=== PATIENT | female | born 1985 | race Caucasian/White ===

== ENCOUNTER 2020-02-29 09:53 | Inpatient (IN) | payer MEDICAID, SELFPAY ==
--- NOTE | 2020-02-29 | CT_ITS ---
EXAMINATION: CT OF THE ABDOMEN AND PELVIS WITHOUT IV CONTRAST CLINICAL INFORMATION: Abdominal pain COMPARISON: Previous CT September 2016 TECHNIQUE: Axial images through the abdomen and pelvis without oral or IV contrast. Sagittal and coronal reconstructions on the technologist workstation were performed. Patient dose 8 3 5 mg/cm. This CT examination was performed using dose optimization techniques as appropriate, variously including the following: *Automated exposure control *Adjustment of mA and/or kV according to patient size (this includes techniques or standardized protocols for targeted exams where dose is matched to indication/reason for exam; i.e. extremities or head) *Use of iterative reconstruction technique FINDINGS: The liver is low in attenuation suggestive of fatty infiltration. Liver is markedly enlarged, right lobe measuring 31 cm in length. There is a 0.8 x 1.3 cm low-attenuation lesion at the junction of the medial segment of the left lobe and the anterior segment of the right lobe of the liver axial image 35 series 3. This is not seen on previous exam. No other focal liver lesion is seen. The gallbladder is unremarkable. There is no biliary duct dilatation. The spleen is slightly enlarged measuring 13 cm in length. Of the pancreas is unremarkable. The adrenal glands are unremarkable. There is a small 2 mm nonobstructing right lower pole renal stone. The kidneys are otherwise unremarkable. There is an IUD in the uterus in satisfactory position. The uterus and ovaries are otherwise unremarkable. The right colon is displaced by the enlarged liver. There may be a fatty infiltration in the wall of the right colon which is a nonspecific finding. Small and large bowel is otherwise unremarkable. The appendix is not identified. There are postsurgical changes from gastric bypass. There is a small umbilical hernia containing fat. There is shotty retroperitoneal lymphadenopathy. No enlarged lymph nodes are seen. There is no ascites. There is degenerative disc disease at L4-L5. IMPRESSION: Very enlarged fatty liver. 8 x 13 mm low-attenuation lesion in the liver not seen on previous exam. Follow-up dedicated liver imaging for further characterization recommended. Slightly enlarged spleen. Postsurgical changes from gastric bypass. Small nonobstructing right lower pole renal stone. IUD in the uterus in satisfactory position.
--- NOTE | 2020-02-29 | XR_ITS ---
EXAMINATION: CHEST X-RAY CLINICAL INFORMATION: Abdominal pain COMPARISON: None TECHNIQUE: AP portable chest FINDINGS: The cardiac and mediastinal contours are normal. The lung volumes are low. There is elevation of the right hemidiaphragm. The lungs are clear. There is no pleural effusion or pneumothorax. There is no evidence of free air. Bony structures are unremarkable. IMPRESSION: Low lung volumes and elevated right hemidiaphragm.
[2020-02-29 10:21] VITALS: BP 120/76; PULSE 125; RESP 20; TEMP 37.3; O2SAT 98; BMI 31.4
[2020-02-29 10:32] VITALS: PULSE 125
[2020-02-29] MEDS: 0.9 % Sodium Chloride 1,000 ML 999 ML IVCONT (10:47)
[2020-02-29] MEDS: ondansetron HCL 4 MG/2 ML VIAL IVPUSH (10:54)
[2020-02-29 10:55] LABS: MANUAL DIFF FLAG NO
[2020-02-29] MEDS: LORazepam 2 MG/ML VIAL 1 MG IVPUSH (10:55)
[2020-02-29 10:56] LABS: Basophils Percent Auto 0.3 % (0-2); Eosinophils Absolute Auto 0.2 X10*3/uL (0.0-0.4); Eosinophils Percent Auto 2.4 % (0-4); Hematocrit 26.3 % (37-47); Hemoglobin 8.9 g/dl (12.0-16.0); Imm Gran Abs Auto 0.07 X10*3/uL (0.00-0.03); Lymphocytes Absolute Auto 0.9 X10*3/uL (1.2-4.9); Lymphocytes Percent Auto 13.5 % (20-40); Mean Corpuscular HGB Conc 33.8 g/dl (31.0-35.0); Mean Corpuscular Hemoglobin 35.6 pg (27.0-33.0); Mean Corpuscular Volume 105.2 fL (80-98); Mean Platelet Volume 11.4 fL (9.4-12.3); Monocytes Absolute Auto 0.5 X10*3/uL (0.1-1.2); Monocytes Percent Auto 7.7 % (2-11); Neutrophils Absolute Auto 5.2 X10*3/uL (2.0-8.3); Neutrophils Percent Auto 75.1 % (45-73); Platelet Count 150 X10*3/uL (160-400); Red Cell Distribution Width 16.9 % (11.0-16.0)
[2020-02-29 11:05] LABS: NRBC Pct Auto 1.4 /100WBC (0.0-0.2)
[2020-02-29 11:15] LABS: Partial Thromboplastin Time 31.3 SEC (24.1-38.0)
[2020-02-29 11:23] LABS: Ethanol < 10 mg/dL
[2020-02-29 11:35] LABS: Alanine Aminotransferase 57 U/L (0-31); Albumin Level 3.3 g/dL (3.5-5.0); Alkaline Phosphatase 306 U/L (39-117); Anion Gap 21 (12-20); Aspartate Amino Transferase 320 U/L (5-31); Bilirubin Direct 11.8 mg/dL (0.0-0.5); Bilirubin Total 15.9 mg/dL (0.0-1.0); Blood Urea Nitrogen 3 mg/dL (9-16); Calcium 8.6 mg/dL (8.4-10.2); Carbon Dioxide 29 mmol/L (22-29); Chloride 86 mmol/L (96-108); Creatinine Clr Calc Pharmacy 187.6; Estimated Glomerular Filt Rate > 60; Glucose Random 98 mg/dL (60-115); Lipase < 4 U/L (8-78); Potassium 3.1 mmol/l (3.3-5.1); Sodium 133 mmol/L (135-145)
[2020-02-29 13:32] VITALS: BP 107/63; PULSE 101; RESP 18; O2SAT 95
[2020-02-29 13:35] LABS: INTERNATIONAL NORM RATIO 1.2 (0.9-1.1); Prothrombin Time 14.5 SEC (10.8-13.0)
[2020-02-29 13:38] LABS: Glucose Urine UA 100 MG/DL (NEG); Urine Blood NEG (NEG); Urine Protein 1+ MG/DL (NEG-TRACE)
[2020-02-29 13:57] LABS: Appearance Urine CLOUDY; Color Urine AMBER
[2020-02-29 14:09] LABS: Amphetamine Screen Urine Not Detected (Not Detect); Barbiturates, Urine Not Detected (Not Detect); Benzodiazepines Screen Urine Not Detected (Not Detect); Cannabinoid Screen Urine Not Detected (Not Detect); Cocaine Screen Urine Not Detected (Not Detect); Opiate Screen Urine Not Detected (Not Detect); Phencyclidine Screen Urine Not Detected (Not Detect)
[2020-02-29 14:26] LABS: UPreg QC Valid YES; Urine Pregnancy NEGATIVE (NEGATIVE)
[2020-02-29 14:39] LABS: Bacteria Urine TRACE /LPF; RBC Urine 0-2 /HPF (0); Squamous Epithelial Cell Urine 2+ /LPF; WBC Urine 0-2 /HPF (0-4)
[2020-02-29 14:47] VITALS: BP 110/67; PULSE 97; RESP 18; TEMP 37.2
--- NOTE | 2020-02-29 15:14 | ED_ITS ---
HPI - Abdominal Pain General Chief Complaint: Abdominal Pain Stated Complaint: ABD PAIN Time Seen by Provider: 02/29/20 10:21 Source: patient and EMS Mode of arrival: ambulatory Limitations: no limitations History of Present Illness HPI narrative: This is a 35-year-old female presenting via EMS from home who reports to me that she has history of seizures and on Keppra as well as neuropathy on gabapentin who is a daily alcohol drinker has been drinking heavily for many years and recently stopped as of 3 days ago. States she will intermittently. Has mild withdrawal symptoms. Today she comes in complaining o f pain in the abdomen and changes in skin color. States she was told by her fiance that she appeared Jaundice more so over the past 3 days. and feels like she has got a kidney infection having pain in the lower abdomen and flank area. MD elicited complaint: abdominal pain Pertinent past history: none Related Data Allergies Allergy/AdvReac Type Severity Reaction Status Date / Time iron dextran complex Allergy Severe ANAPHYLAXIS Verified 02/29/20 10:57 [IRON DEXTRAN COMPLEX] Sulfa (Sulfonamide Allergy Intermediate RASH/LIPS Verified 02/29/20 10:57 Antibiotics) SWELL [SULFA (SULFONAMIDE ANTIBIOTICS)] bactrim Allergy Unknown Rash Uncoded 02/29/20 10:31 iron dextran Allergy Unknown Anaphylaxis Uncoded 02/29/20 10:31 Review of Systems Eyes: Reports no additional eye complaints Reports system reviewed and no additional complaints, except as documented Cardiovascular: Reports no additional cardiovascular complaints Respiratory: Reports no additional respiratory complaints Gastrointestinal: Reports abdominal pain Genitourinary: Reports no additional female genitourinary complaints Musculoskeletal: Reports no additional musculoskeletal complaints Skin/Breast: Reports system reviewed and no additional complaints, except as docu Reports system reviewed and no additional complaints, except as documented and Denies confusion Psychiatric: Reports no additional psychiatric complaints and Denies confusion Physical Exam Vital Signs and I&O and Narrative: Vital Signs and I&O: Vital Signs Temp 98.9 F 02/29/20 14:47 Pulse 97 02/29/20 14:47 Resp 18 02/29/20 14:47 BP 110/67 02/29/20 14:47 Pulse Ox 95 02/29/20 13:32 Intake & Output 02/28/20 02/29/20 02/29/20 18:59 06:59 18:59 Intake Total 1000 / 1000 Balance 1000 / 1000 Weight 90.991 kg Intake: Intake, IV Amoun t 1000 / 1000 0.9 % Sodium C hloride 1,000 ml 1000 / 1000 @ 999 mls/hr I VCONT .Q1H1M ON LICENSE OF [facility] Rx#:[id number] Body Mass Index 31.4 Const: General: no acute distress and alert; No confusion Orientation/consciousness: No confusion HENMT: Head: Yes normal to inspection Eyes: Sclerae: scleral abnormal (jaundice) Pupils: Equal, round and reactive pupils present Neck: Neck: Yes normal visual inspection Chest: Chest palpation & inspection: normal inspection of the chest Resp: Auscultation: clear to auscultation bilaterally Cardio: Heart sounds: S1 normal heart sound present and S2 normal heart sound present GI: Palpation (GI): nontender : General: No no CVA tenderness Back/Spine/Pelvis: Back: No no CVA tenderness Skin: General skin exam: rashes and/or lesions noted and jaundice Neuro: General: No confusion Cranial nerves: Yes Equal, round and reactive pupils present Motor exam (neuro): 5/5 motor strength present throughout Extrem: General: Yes normal to inspection Psych: Appearance: grossly normal Course Course Hospital Course: Labs show over derangement in the setting of extensive alcohol abuse. She is overall nontoxic appearing. Mentating well. She is in fact sitting up texting on her phone. Likely suspected etiology is alcoholic liver cirrhosis/ alcoholic hepatitis. Case discussed with hospitalist for admission /further evaluation. Given Ativan upon arrival given that she was slightly tremorous and tachycardic. Subsequently started on phenobarb for alcohol withdrawal set. Reevaluation(s) Additional Reevaluation(s): CT scan of the abdomen pelvis impression; very large fatty liver. 8 x 13 mm low-attenuation lesion in the liver not seen on previous exam. Follow-up dedicated liver imaging for further characterization recommended. Slightly enlarged spleen. Postsurgical changes from gastric bypass. Nonobstructing right lower pole renal stone. IUD in uterus in satisfactory position. Read by radiologist sutures in [place]. MDM - Abdominal Pain Differential Diagnosis Differential diagnosis: Likely abdominal pain and pancreatitis; Unlikely aortic dissection, acute appendicitis, bowel perforation, calculus of kidney, constipation, diverticulitis, endometriosis, gastroenteritis, gastritis, mesenteric ischemia, ovarian cyst, peptic ulcer disease, renal colic and small bowel obstruction Differential diagnosis narrative:: Liver failure, hepatitis, alcoholic hepatitis Medical Records Attestation: I reviewed the patient's medical records. Lab Data Attestation: I reviewed the patient's lab results. Result diagrams: 02/29/20 10:43 02/29/20 10:44 Labs: Lab Results 02/29/20 02/29/20 02/29/20 Range/Units 10:43 10:44 10:44 WBC 7.0 (4.8-10.8) X10*3/uL RBC 2.50 L (4.20-5.50) X10*6/uL Hgb 8.9 L (12.0-16.0) g/dl Hct 26.3 L (37-47) % MCV 105.2 H (80-98) fL MCH 35.6 H (27.0-33.0) pg MCHC 33.8 (31.0-35.0) g/dl RDW 16.9 H (11.0-16.0) % Plt Count 150 L (160-400) X10*3/uL MPV 11.4 (9.4-12.3) fL Immature Gran % (Auto) 1.0 H (0.0-0.4) % Neut % (Auto) 75.1 H (45-73) % Lymph % (Auto) 13.5 L (20-40) % [place] % (Auto) 7.7 (2-11) % Eos % (Auto) 2.4 (0-4) % Baso % (Auto) 0.3 (0-2) % Neut # (Auto) 5.2 (2.0-8.3) X10*3/uL Lymph # (Auto) 0.9 L (1.2-4.9) X10*3/uL [place] # (Auto) 0.5 (0.1-1.2) X10*3/uL Eos # (Auto) 0.2 (0.0-0.4) X10*3/uL Baso # (Auto) 0.0 (0.0-0.2) X10*3/uL Abs Immat Gran (auto) 0.07 H (0.00-0.03) X10*3/uL Absolute Nucleated RBC 0.100 H (0.0-0.012) X10*3/uL Nucleated RBC % (auto) 1.4 H (0.0-0.2) /100WBC PT 14.5 H (10.8-13.0) SEC INR 1.2 H (0.9-1.1) APTT 31.3 (24.1-38.0) SEC Hold Blue Top SEE NOTE Sodium 133 L (135-145) mmol/L Potassium 3.1 L (3.3-5.1) mmol/l Chloride 86 L (96-108) mmol/L Carbon Dioxide 29 (22-29) mmol/L Anion Gap 21 H (12-20) BUN 3 L (9-16) mg/dL Creatinine (0.5-1.4) mg/dL Estim Creat Clear Calc 187.6 Estimated GFR > 60 Random Glucose 98 (60-115) mg/dL Calcium 8.6 (8.4-10.2) mg/dL Total Bilirubin 15.9 H (0.0-1.0) mg/dL Direct Bilirubin 11.8 H (0.0-0.5) mg/dL AST 320 H (5-31) U/L ALT 57 H (0-31) U/L Alkaline Phosphatase 306 H (39-117) U/L Total Protein 6.0 L (6.5-8.0) g/dL Albumin 3.3 L (3.5-5.0) g/dL Lipase < 4 L (8-78) U/L Urine Color Urine Appearance Urine pH (5.0-8.0) Ur Specific [place] (1.005-1.025) Urine Protein (NEG-TRACE) MG/DL Urine Glucose (UA) (NEG) MG/DL Urine Ketones (NEG) MG/DL Urine Blood (NEG) Urine Nitrite (NEG) Ur Leukocyte Esterase (NEG) Urine RBC (0) /HPF Urine WBC (0-4) /HPF Ur Squamous Epith Cells /LPF Urine Bacteria /LPF Urine Test (NEGATIVE) Urine Opiates Screen (Not Detect) Ur Barbiturates Screen (Not Detect) Ur Phencyclidine Scrn (Not Detect) Ur Amphetamines Screen (Not Detect) U Benzodiazepines Scrn (Not Detect) Urine Cocaine Screen (Not Detect) U Marijuana (THC) Screen (Not Detect) Ethyl Alcohol mg/dL 02/29/20 02/29/20 02/29/20 Range/Units 10:44 12:46 12:46 WBC (4.8-10.8) X10*3/uL RBC (4.20-5.50) X10*6/uL Hgb (12.0-16.0) g/dl Hct (37-47) % MCV (80-98) fL MCH (27.0-33.0) pg MCHC (31.0-35.0) g/dl RDW (11.0-16.0) % Plt Count (160-400) X10*3/uL MPV (9.4-12.3) fL Immature Gran % (Auto) (0.0-0.4) % Neut % (Auto) (45-73) % Lymph % (Auto) (20-40) % [place] % (Auto) (2-11) % Eos % (Auto) (0-4) % Baso % (Auto) (0-2) % Neut # (Auto) (2.0-8.3) X10*3/uL Lymph # (Auto) (1.2-4.9) X10*3/uL [place] # (Auto) (0.1-1.2) X10*3/uL Eos # (Auto) (0.0-0.4) X10*3/uL Baso # (Auto) (0.0-0.2) X10*3/uL Abs Immat Gran (auto) (0.00-0.03) X10*3/uL Absolute Nucleated RBC (0.0-0.012) X10*3/uL Nucleated RBC % (auto) (0.0-0.2) /100WBC PT (10.8-13.0) SEC INR (0.9-1.1) APTT (24.1-38.0) SEC Hold Blue Top Sodium (135-145) mmol/L Potassium (3.3-5.1) mmol/l Chloride (96-108) mmol/L Carbon Dioxide (22-29) mmol/L Anion Gap (12-20) BUN (9-16) mg/dL Creatinine (0.5-1.4) mg/dL Estim Creat Clear Calc Estimated GFR Random Glucose (60-115) mg/dL Calcium (8.4-10.2) mg/dL Total Bilirubin (0.0-1.0) mg/dL Direct Bilirubin (0.0-0.5) mg/dL AST (5-31) U/L ALT (0-31) U/L Alkaline Phosphatase (39-117) U/L Total Protein (6.5-8.0) g/dL Albumin (3.5-5.0) g/dL Lipase (8-78) U/L Urine Color JORGE Urine Appearance CLOUDY Urine pH 7.0 (5.0-8.0) Ur Specific [place] 1.010 (1.005-1.025) Urine Protein 1+ H (NEG-TRACE) MG/DL Urine Glucose (UA) 100 H (NEG) MG/DL Urine Ketones SEE NOTE (NEG) MG/DL Urine Blood NEG (NEG) Urine Nitrite SEE NOTE (NEG) Ur Leukocyte Esterase SEE NOTE (NEG) Urine RBC 0-2 (0) /HPF Urine WBC 0-2 (0-4) /HPF Ur Squamous Epith Cells 2+ /LPF Urine Bacteria TRACE /LPF Urine Test NEGATIVE (NEGATIVE) Urine Opiates Screen Not Detected (Not Detect) Ur Barbiturates Screen Not Detected (Not Detect) Ur Phencyclidine Scrn Not Detected (Not Detect) Ur Amphetamines Screen Not Detected (Not Detect) U Benzodiazepines Scrn Not Detected (Not Detect) Urine Cocaine Screen Not Detected (Not Detect) U Marijuana (THC) Screen Not Detected (Not Detect) Ethyl Alcohol < 10 mg/dL ABG Data Attestation: I personally reviewed and interpreted this ABG as follows: Discharge Plan Discharge Clinical Impression: Acute alcoholic hepatitis, Abdominal pain Patient Disposition: Admitted As Inpatient [facility] Past Medical History Medical History (Updated 02/29/20 @ 15:52 by Herbert Callahan NP) Alcoholic steatohepatitis Superficial thrombophlebitis Surgical History (Updated 02/29/20 @ 10:29 by Richa Sweeney) Gastric bypass status for obesity History of adenoidectomy Hx of tonsillectomy Previous back surgery Social History Social History Alcohol intake: current Alcohol intake frequency: 3 or more drinks per day Alcohol type: hard liquor and other Smoking Status: Current every day smoker Smoked in Last 30 Days: Yes Use of substances other than those prescribed or required for medical reasons: No Advance Directives: No Advance Directives Information Provided: No
--- NOTE | 2020-02-29 15:14 | PM.IMHP ---
History of Present Illness Date of Service: 02/29/20 Chief Complaint: jaundice, abdominal pain 35-year-old female presented with 3 days jaundice and abdominal pain. Patient states that 4 days prior to presentation she was asymptomatic. Then she started noticing yellowing of his skin denies and diffuse abdominal pain associated with decreased appetite. Patient denies any fevers chills chest pain shortness of breath nausea vomiting or diarrhea. Of note patient has heavy alcohol use increased last year. She last drank 2 days prior to presentation. Past medical history: Alcohol dependence with alcoholic fatty liver disease Epilepsy Raynaud's PCOS Iron deficiency new Chronic back pain Right cephalic superficial thrombophlebitis that was provoked status post 1 month of Xarelto Past surgical history: Gastric bypass 2009 Back surgery Tonsillectomy Review of Systems Constitutional: Constitutional: Denies fever(s) and Reports poor appetite Eyes: Eyes: Denies blurry vision ENT: Denies dysphagia, Denies vertigo, Denies neck pain and Denies throat swelling Cardiovascular: Cardiovascular: Denies chest pain and Denies dyspnea Respiratory: Respiratory: Denies dyspnea Gastrointestinal: Gastrointestinal: Denies dysphagia Genitourinary: Genitourinary: Denies flank pain Musculoskeletal: Musculoskeletal: Denies neck pain Integumentary/Breasts: Skin/Breast: Denies changing lesions Neurologic: Denies confusion and Denies vertigo Psychiatric: Psychiatric: Denies confusion Endocrine: Endocrine: Denies change in body appearance Hematologic/Lymphatic: Hematologic/Lymphatic: Denies easy bleeding Allergic/Immunologic: Allergic/Immunologic: Denies throat swelling [facility] Medical History (Updated 02/29/20 @ 15:52 by Herbert Callahan NP) Alcoholic steatohepatitis Superficial thrombophlebitis Pertinent family history: denies cad Surgical History (Updated 02/29/20 @ 10:29 by Richa Sweeney) Gastric bypass status for obesity History of adenoidectomy Hx of tonsillectomy Previous back surgery Social History Alcohol intake: current Alcohol intake frequency: 3 or more drinks per day Alcohol type: hard liquor and other Smoking Status: Current every day smoker Smoked in Last 30 Days: Yes Use of substances other than those prescribed or required for medical reasons: No Advance Directives: No Advance Directives Information Provided: No Meds Allergies Allergy/AdvReac Type Severity Reaction Status Date / Time iron dextran complex Allergy Severe ANAPHYLAXIS Verified 02/29/20 10:57 [IRON DEXTRAN COMPLEX] Sulfa (Sulfonamide Allergy Intermediate RASH/LIPS Verified 02/29/20 10:57 Antibiotics) SWELL [SULFA (SULFONAMIDE ANTIBIOTICS)] bactrim Allergy Unknown Rash Uncoded 02/29/20 10:31 iron dextran Allergy Unknown Anaphylaxis Uncoded 02/29/20 10:31 Home Medications Medication Instructions Recorded Confirmed Type cyanocobalamin (vitamin B-12) 1,000 mcg PO DAILY 02/29/20 02/29/20 History duloxetine 30 mg PO BID 02/29/20 02/29/20 History gabapentin 900 mg PO TID 02/29/20 02/29/20 History hydrochlorothiazide 25 mg PO DAILY 02/29/20 02/29/20 History levetiracetam [Keppra] 1,500 mg PO BID 02/29/20 02/29/20 History multivitamin 1 tab PO DAILY 02/29/20 02/29/20 History pantoprazole [Protonix] 20 mg PO DAILY 02/29/20 02/29/20 History Physical Exam Vital Signs and Narrative: Vital Signs: Last Vital Signs Temp 98.9 F 02/29/20 14:47 Pulse 97 02/29/20 14:47 Resp 18 02/29/20 14:47 BP 110/67 02/29/20 14:47 Pulse Ox 95 02/29/20 13:32 Body Mass Index 31.4 Const: General: no acute distress and alert; No confusion Orientation/consciousness: No confusion HENMT: Head: Yes normal to inspection Eyes: Sclerae: scleral abnormal (jaundice) Neck: Yes normal visual inspection Chest: Chest palpation & inspection: normal inspection of the chest Resp: Auscultation: clear to auscultation bilaterally Cardio: Heart sounds: S1 normal heart sound present and S2 normal heart sound present GI: Palpation (GI): nontender : General: No no CVA tenderness Back/Spine/Pelvis: Back: No no CVA tenderness Skin: General skin exam: rashes and/or lesions noted and jaundice Neuro: General: No confusion Motor exam (neuro): 5/5 motor strength present throughout Extrem: General: Yes normal to inspection Psych: Appearance: grossly normal Results Labs Labs: Laboratory Tests 02/29/20 02/29/20 02/29/20 10:43 10:44 10:44 WBC 7.0 RBC 2.50 L Hgb 8.9 L Hct 26.3 L MCV 105.2 H MCH 35.6 H MCHC 33.8 RDW 16.9 H Plt Count 150 L MPV 11.4 Immature Gran % (Auto) 1.0 H Neut % (Auto) 75.1 H Lymph % (Auto) 13.5 L [place] % (Auto) 7.7 Eos % (Auto) 2.4 Baso % (Auto) 0.3 Neut # (Auto) 5.2 Lymph # (Auto) 0.9 L [place] # (Auto) 0.5 Eos # (Auto) 0.2 Baso # (Auto) 0.0 Abs Immat Gran (auto) 0.07 H Absolute Nucleated RBC 0.100 H Nucleated RBC % (auto) 1.4 H PT 14.5 H INR 1.2 H APTT 31.3 Hold Blue Top SEE NOTE Sodium 133 L Potassium 3.1 L Chloride 86 L Carbon Dioxide 29 Anion Gap 21 H BUN 3 L Creatinine Estim Creat Clear Calc 187.6 Estimated GFR > 60 Random Glucose 98 Calcium 8.6 Total Bilirubin 15.9 H Direct Bilirubin 11.8 H AST 320 H ALT 57 H Alkaline Phosphatase 306 H Total Protein 6.0 L Albumin 3.3 L Lipase < 4 L Urine Color Urine Appearance Urine pH Ur Specific [place] Urine Protein Urine Glucose (UA) Urine Ketones Urine Blood Urine Nitrite Ur Leukocyte Esterase Urine RBC Urine WBC Ur Squamous Epith Cells Urine Bacteria Urine Test Urine Opiates Screen Ur Barbiturates Screen Ur Phencyclidine Scrn Ur Amphetamines Screen U Benzodiazepines Scrn Urine Cocaine Screen U Marijuana (THC) Screen Ethyl Alcohol 02/29/20 02/29/20 02/29/20 10:44 12:46 12:46 WBC RBC Hgb Hct MCV MCH MCHC RDW Plt Count MPV Immature Gran % (Auto) Neut % (Auto) Lymph % (Auto) [place] % (Auto) Eos % (Auto) Baso % (Auto) Neut # (Auto) Lymph # (Auto) [place] # (Auto) Eos # (Auto) Baso # (Auto) Abs Immat Gran (auto) Absolute Nucleated RBC Nucleated RBC % (auto) PT INR APTT Hold Blue Top Sodium Potassium Chloride Carbon Dioxide Anion Gap BUN Creatinine Estim Creat Clear Calc Estimated GFR Random Glucose Calcium Total Bilirubin Direct Bilirubin AST ALT Alkaline Phosphatase Total Protein Albumin Lipase Urine Color JORGE Urine Appearance CLOUDY Urine pH 7.0 Ur Specific [place] 1.010 Urine Protein 1+ H Urine Glucose (UA) 100 H Urine Ketones SEE NOTE Urine Blood NEG Urine Nitrite SEE NOTE Ur Leukocyte Esterase SEE NOTE Urine RBC 0-2 Urine WBC 0-2 Ur Squamous Epith Cells 2+ Urine Bacteria TRACE Urine Test NEGATIVE Urine Opiates Screen Not Detected Ur Barbiturates Screen Not Detected Ur Phencyclidine Scrn Not Detected Ur Amphetamines Screen Not Detected U Benzodiazepines Scrn Not Detected Urine Cocaine Screen Not Detected U Marijuana (THC) Screen Not Detected Ethyl Alcohol < 10 Assessment and Plan (1) Acute alcoholic hepatitis: Status: Acute (2) Alcoholic steatohepatitis: Status: Acute (3) Epilepsy: Status: Acute 35-year-old female presented with jaundice acute alcoholic hepatitis prednisone monitor labs GI follow-up CT rule out other causes such as viral hepatitis, hepatic vein thrombosis alcohol dependence with withdrawal phenobarb protocol epilepsy Keppra and gabapentin
[2020-02-29 17:46] VITALS: BP 103/63; PULSE 97; RESP 18; TEMP 37
--- NOTE | 2020-02-29 18:12 | PC.NURSE ---
Report called to Michelle on M/S. pt resentation, condition, meds, VS and interventions reviewed.
[2020-02-29 18:31] VITALS: BP 107/55; PULSE 99; RESP 18; TEMP 36.7; O2SAT 95
[2020-02-29] MEDS: Enoxaparin Sodium 40 MG/0.4 ML SYRINGE SUBCUT (19:25)
[2020-02-29] MEDS: 0.9 % Sodium Chloride Flush 3 ML SYRINGE 2 ML IVFLUSH (19:27)
--- NOTE | 2020-02-29 21:08 | PM.GICN ---
History of Present Illness Data of Consult Service Date: 02/29/20 Requesting physician: Kurtis Mason Primary Care Provider: Queta Santiago NP HPI Reason for consult: jaundice and abn LFT 35 yr old f with hx of alcohol abuse, gastric bypass, upper arm DVT, failed back syndrome, anemia who I am seeing for assessment of abn LFT and jaundice She admits to drinking vodka daily for last 6 month due to falling out with daughter. Last few days she was noticed to be jaundiced by partner, also she noted upper and lower abdominal discomfort, appetite has been poor. She denies nausea, no diarrhea, or constipation and no melena or rectal bleeding. Urine noted to be darker by patient. taking tylenol intermittently for pain, no nsaids and no herbal meds or nsaid, no augmentin recently or drug use. 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 she denies abdo pain no n/v she has diarrhea, on and off, she has been tylenol and ibuprofen she thinks she has seen blood in urine no blood in stool no rectal bleeding never had egd/colonoscopy grand dad had colon cancer aged 50 labs attached: hgb 14 02/2108 now hgb 10.7 bili 1 ast 202 alt 31 alk phos; 271 b12 294 (on b12 shots) folic acid 4.8 iron sat 10% ferritin 66 u/s 07/2018 with echogenic liver, stone vs sludge in gb pelvic u/s 2016--normal EGD/COlonoscopy--03/2019--erosive esophagitis, grade B, nati en Y--polyps, tics hemorrhoids bx:rectal polyp, adenoma, hyperplastic polyp, focal colitis, moderate active inflammation GEJ LABS: x9lm--ucnjwe, SHAYNE, SLA, SMA--normal, copper in urine low normal vit b12 and folic acid INTERIM: she has no more diarrhea legs are much better, still some burning in feet no abdo pain if overeats can get regurgitation no seizures since on medication appetite is good weight is stable still drinks alcohol, 4 beers twice a week, enjoys it. Review of Systems Constitutional: Constitutional: Reports poor appetite Eyes: Eyes: Reports no additional eye complaints ENT: Denies vertigo Cardiovascular: Cardiovascular: Reports no additional cardiovascular complaints Respiratory: Respiratory: Reports no additional respiratory complaints Gastrointestinal: Gastrointestinal: Reports as per HPI Genitourinary: Genitourinary: Reports no additional female genitourinary complaints Musculoskeletal: Musculoskeletal: Reports abnormal gait and Reports back pain Neurologic: Reports system reviewed and no additional complaints, except as documented, Reports abnormal gait, Denies confusion and Denies vertigo Psychiatric: Psychiatric: Denies confusion and Reports depression Hematologic/Lymphatic: Hematologic/Lymphatic: Reports as per HPI Allergic/Immunologic: Allergic/Immunologic: Reports no additional allergic/immunologic complaints PMFSH Past Medical History Medical History Alcoholic steatohepatitis Superficial thrombophlebitis Family History Pertinent family history: denies cad Surgical History Surgical History Gastric bypass status for obesity History of adenoidectomy Hx of tonsillectomy Previous back surgery Social History Social History Alcohol intake: current Alcohol intake frequency: 3 or more drinks per day Alcohol type: hard liquor and other Smoking Status: Current every day smoker Smoked in Last 30 Days: Yes Use of substances other than those prescribed or required for medical reasons: No Advance Directives: No Advance Directives Information Provided: No Meds Allergies Allergy/AdvReac Type Severity Reaction Status Date / Time iron dextran complex Allergy Severe ANAPHYLAXIS Verified 02/29/20 10:57 [IRON DEXTRAN COMPLEX] Sulfa (Sulfonamide Allergy Intermediate RASH/LIPS Verified 02/29/20 10:57 Antibiotics) SWELL [SULFA (SULFONAMIDE ANTIBIOTICS)] bactrim Allergy Unknown Rash Uncoded 02/29/20 10:31 iron dextran Allergy Unknown Anaphylaxis Uncoded 02/29/20 10:31 Home Medications Medication Instructions Recorded Confirmed Type cyanocobalamin (vitamin B-12) 1,000 mcg PO DAILY 02/29/20 02/29/20 History duloxetine 30 mg PO BID 02/29/20 02/29/20 History gabapentin 900 mg PO TID 02/29/20 02/29/20 History hydrochlorothiazide 25 mg PO DAILY 02/29/20 02/29/20 History levetiracetam [Keppra] 1,500 mg PO BID 02/29/20 02/29/20 History multivitamin 1 tab PO DAILY 02/29/20 02/29/20 History pantoprazole [Protonix] 20 mg PO DAILY 02/29/20 02/29/20 History Physical Exam Vital Signs and I&O and Narrative: Vital Signs and I&O: Vital Signs Temp 98.1 F 02/29/20 18:31 Pulse 99 02/29/20 18:31 Resp 18 02/29/20 18:31 BP 107/55 L 02/29/20 18:31 Pulse Ox 95 02/29/20 18:31 Intake & Output 02/29/20 02/29/20 03/01/20 06:59 18:59 06:59 Intake Total 2010. Balance Weight 200 lb 9.6 oz Intake: Intake, IV Amoun t 0.9 % Sodium C hloride 1,000 ml 1000 / 1000 @ 999 mls/hr I VCONT .Q1H1M COUNTS INCLUDE 234 BEDS AT THE [facility] Rx#:[id number] Folic Acid 1 m g Thiamine HCL 1011.2 / 1011.2 100 mg MVI, Ad ult 10 ml In 0.9 % Sodium Chlor ayah 1,000 ml @ 42 mls/hr IVCONT .Q24H COUNTS INCLUDE 234 BEDS AT THE [facility] Rx#: [id number] Body Mass Index 31.4 Const: General: No confusion Orientation/consciousness: No confusion HENMT: Head: Yes normal to inspection Eyes: Sclerae: scleral abnormal (jaundice) Pupils: Equal, round and reactive pupils present Neck: Neck: Yes normal visual inspection Chest: Chest palpation & inspection: normal inspection of the chest Resp: Auscultation: clear to auscultation bilaterally Cardio: Heart sounds: S1 normal heart sound present and S2 normal heart sound present GI: Palpation (GI): Tenderness to palpation present (GI) in the epigastrum and in the RUQ : General: No no CVA tenderness Back/Spine/Pelvis: Back: No no CVA tenderness Skin: General skin exam: rashes and/or lesions noted and jaundice Neuro: General: No confusion Cranial nerves: Yes Equal, round and reactive pupils present Motor exam (neuro): 5/5 motor strength present throughout Extrem: General: Yes normal to inspection Psych: Appearance: grossly normal Results Labs CBC & Chem 7: 02/29/20 10:43 02/29/20 10:44 Labs: Short CBC 02/29/20 Range/Units 10:43 WBC 7.0 (4.8-10.8) X10*3/uL Hgb 8.9 L (12.0-16.0) g/dl Hct 26.3 L (37-47) % Plt Count 150 L (160-400) X10*3/uL BMP 02/29/20 10:44 Sodium 133 L Potassium 3.1 L Chloride 86 L Carbon Dioxide 29 BUN 3 L Creatinine Calcium 8.6 Liver Function 02/29/20 Range/Units 10:44 Total Bilirubin 15.9 H (0.0-1.0) mg/dL Direct Bilirubin 11.8 H (0.0-0.5) mg/dL AST 320 H (5-31) U/L ALT 57 H (0-31) U/L Alkaline Phosphatase 306 H (39-117) U/L Albumin 3.3 L (3.5-5.0) g/dL Urine 02/29/20 Range/Units 12:46 Urine Color JORGE Urine Appearance CLOUDY Urine pH 7.0 (5.0-8.0) Ur Specific [place] 1.010 (1.005-1.025) Urine Protein 1+ H (NEG-TRACE) MG/DL Urine Glucose (UA) 100 H (NEG) MG/DL Assessment and Plan (1) Acute alcoholic hepatitis: Status: Acute (2) Acute on chronic blood loss anemia: Status: Acute 35 yr old f with acute jaundice suspected 2/2 acute alcoholic hepatitis ddx; budd chiari, infectious hepatitis, toxic, acut wilsons, autoimmune hepatitis, no evidence of sepsis 2/ Acute on chronic anemia, prob 2/2 nutritional def, gastric bypass and malabsorption, watch for zieves syndrome PLAN: 1/ us liver with doppler 2/ ceruloplasmin, SMA< SHAYNE, IGG, SLA, hep serologies incl hep E, tylenol 3/ high protein diet to prevent sarcopenia 1.1 g/kg/day 4/thiamine and vitmains, watch for alcohol withdrawal 5/ hold on steroids for the moment, madey is borderline, if Bili keeps going up then can consider 6/ rehab and counselling, psych input
[2020-02-29] MEDS: levETIRAcetam Oral Soln 500 MG/5 ML 1500 MG PO (21:17)
[2020-02-29] MEDS: DULoxetine HCl 30 MG CAPSULE.DR PO (21:17)
[2020-02-29] MEDS: Gabapentin 300 MG CAPSULE 900 MG PO (21:18)
[2020-02-29] MEDS: PHENobarbitaL sodium 130 MG/ML VIAL 197 MG IM (21:18)
--- NOTE | 2020-02-29 21:37 | PC.NURSE ---
Phenobarb IM injection given at 2100. 197 mg ordered. Pulled out 260 mg from pyxis and the pyxis did not ask me to waste, nor do I have an undocumented waste. I did waste 63 mg to give a total dose of 197 mg, 1.54 ml. Wasted with Aliya Serna RN. Spoke with pharmacy and I was told to write a note regarding the waste. Aliya will also write a note.
--- NOTE | 2020-02-29 21:58 | PC.NURSE ---
Witnessed Akanksha LOPEZ wasting 63 mg of phenobarbital.
[2020-03-01] VITALS (9 sets, daily range): BP systolic 105–140; BP diastolic 59–73; PULSE 74–103; RESP 19–20; TEMP 36.4–37.1; O2SAT 95–99; BMI 31.4
[2020-03-01] MEDS: PHENobarbitaL sodium 130 MG/ML VIAL 148 MG IM ×2 (00:20→03:30)
[2020-03-01] MEDS: 0.9 % Sodium Chloride Flush 3 ML SYRINGE 2 ML IVFLUSH ×2 (00:21→10:18)
--- NOTE | 2020-03-01 00:39 | PC.NURSE ---
PT HAS 148 MG OF IM PHENOBARB ORDERED. TOOK OUT 2 VIALS FOR TOTAL OF 260 MG. WASTED 112 MG OF PHENOBARB WITH DAVIDA INFANTE RN. AMADA DID NOT PROMPT ME TO WASTE, CALLED PHARMACY EARLIER AND WAS TOLD TO WRITE A NOTE TO COVER THE WASTE. DAVIDA WILL WRITE A NOTE ALSO.
--- NOTE | 2020-03-01 00:43 | PC.NURSE ---
PT HAS 148 MG OF IM PHENOBARB ORDERED. Akanksha Keane took OUT 2 VIALS FOR TOTAL OF 260 MG. WASTED 112 MG OF PHENOBARB WITH me. AMADA DID NOT PROMPT ME TO WASTE, CALLED PHARMACY EARLIER AND WAS TOLD TO WRITE A NOTE TO COVER THE WASTE.
[2020-03-01] MEDS: Acetaminophen 325 MG TABLET 650 MG PO ×3 (01:36→21:00)
[2020-03-01] MEDS: Omeprazole 20 MG CAPSULE.DR PO (05:52)
[2020-03-01 06:32] LABS: MANUAL DIFF FLAG NO
[2020-03-01 07:06] LABS: INTERNATIONAL NORM RATIO 1.3 (0.9-1.1); Prothrombin Time 15.1 SEC (10.8-13.0)
[2020-03-01 07:07] LABS: Anion Gap 16 (12-20); Blood Urea Nitrogen 4 mg/dL (9-16); Carbon Dioxide 32 mmol/L (22-29); Chloride 93 mmol/L (96-108); Creatinine Clr Calc Pharmacy 195.8; Estimated Glomerular Filt Rate > 60; Glucose Fasting 69 mg/dL (60-99); Potassium 3.6 mmol/l (3.3-5.1); Sodium 137 mmol/L (135-145)
[2020-03-01 07:09] LABS: Basophils Percent Auto 0.3 % (0-2); Hematocrit 24.7 % (37-47); Hemoglobin 8.1 g/dl (12.0-16.0); Imm Gran Pct Auto 1.6 % (0.0-0.4); Lymphocytes Absolute Auto 1.4 X10*3/uL (1.2-4.9); Lymphocytes Percent Auto 22.3 % (20-40); Mean Corpuscular HGB Conc 32.8 g/dl (31.0-35.0); Mean Corpuscular Hemoglobin 35.4 pg (27.0-33.0); Mean Corpuscular Volume 107.9 fL (80-98); Mean Platelet Volume 12.4 fL (9.4-12.3); Monocytes Absolute Auto 0.4 X10*3/uL (0.1-1.2); Monocytes Percent Auto 6.7 % (2-11); Neutrophils Absolute Auto 4.3 X10*3/uL (2.0-8.3); Neutrophils Percent Auto 69.1 % (45-73); Platelet Count 122 X10*3/uL (160-400); Red Blood Count 2.29 X10*6/uL (4.20-5.50); White Blood Count 6.3 X10*3/uL (4.8-10.8)
[2020-03-01 07:24] LABS: Calcium 8.2 mg/dL (8.4-10.2)
[2020-03-01 07:27] LABS: NRBC Pct Auto 1.1 /100WBC (0.0-0.2)
[2020-03-01 07:36] LABS: Alanine Aminotransferase 46 U/L (0-31); Aspartate Amino Transferase 262 U/L (5-31); Blood Urea Nitrogen 4 mg/dL (9-16); Creatinine Clr Calc Pharmacy 187.6; Estimated Glomerular Filt Rate > 60
[2020-03-01 09:21] LABS: Alkaline Phosphatase 256 U/L (39-117); Bilirubin Direct 11.2 mg/dL (0.0-0.5); Bilirubin Total 14.9 mg/dL (0.0-1.0); Total Protein 5.3 g/dL (6.5-8.0)
[2020-03-01] MEDS: levETIRAcetam Oral Soln 500 MG/5 ML 1500 MG PO ×2 (10:01→20:55)
[2020-03-01] MEDS: Gabapentin 300 MG CAPSULE 900 MG PO ×3 (10:02→20:56)
[2020-03-01] MEDS: PHENobarbitaL 15 MG TABLET 45 MG PO ×2 (10:03→20:56)
[2020-03-01] MEDS: Multivitamin TABLET 1 TAB PO (10:03)
[2020-03-01] MEDS: Cyanocobalamin (Vitamin B-12) 1,000 MCG TABLET 1000 MCG PO (10:18)
[2020-03-01] MEDS: DULoxetine HCl 30 MG CAPSULE.DR PO ×2 (10:18→20:58)
[2020-03-01 11:31] LABS: HBS Num1 14.28 mIU/mL (0-7.99); HBc Num1 0.34 S/CO (0.00-0.79); HBsAGNum1 0.16 S/CO (0.00-0.99); Hepatitis A Antibody IgM 0.17 Index (0-0.79); Hepatitis B Core Antibody Nonreactive (Nonreactive); Hepatitis B Surface Antigen Negative (Negative); ~Hepatitis A Antibody IgM Nonreactive (Nonreactive); ~Hepatitis B Surface Antibody REACTIVE (Nonreactive)
[2020-03-01 11:37] LABS: ~HepC Num1 0.13 S/CO (0.00-0.79); ~Hepatitis C Antibody Nonreactive (Nonreactive)
--- NOTE | 2020-03-01 12:25 | P.PNIM_ITS ---
Subjective Neurologic Neurologic: Denies confusion Psychiatric Psychiatric: Denies confusion Physical Exam Vital Signs and I&O and Narrative: Vital Signs and I&O: Vital Signs Temp 97.7 F 03/01/20 08:00 Pulse 97 03/01/20 08:00 Resp 19 03/01/20 08:00 BP 105/65 03/01/20 08:00 Pulse Ox 95 03/01/20 08:00 Intake & Output 02/29/20 03/01/20 03/01/20 18:59 06:59 18:59 Intake Total 2570. 560 / 257.2 Output Total 500 / 500 Balance 2070. 60 2070. Urine Output (Aver age ml/kg/hr) 0.46 Weight 90.991 kg Intake: Intake, Oral [place] unt 560 / 560 Intake, IV Amoun t 0.9 % Sodium C hloride 1,000 ml 1000 / 1000 @ 999 mls/hr I VCONT .Q1H1M [facility] Rx#:[id number] Folic Acid 1 m g Thiamine HCL 1011.2 / 1011.2 100 mg MVI, Ad ult 10 ml In 0.9 % Sodium Chlor ayah 1,000 ml @ 42 mls/hr IVCONT .Q24H [facility] Rx#: [id number] Output: Output, Urine Am ount 500 / 500 Other: Dinner % Eaten 75% Number of Unmeas ured Voids 2 Urine Bathroom Urine Color Yellow Last Bowel Movem ent 02/29/20 Stool Bathroom Stool Color Brown Stool Consistenc y Watery Body Mass Index 31.4 Const: General: no acute distress and alert; No confusion Orientation/consciousness: No confusion HENMT: Head: Yes normal to inspection Eyes: Sclerae: scleral abnormal (jaundice) Pupils: Equal, round and reactive pupils present Neck: Neck: Yes normal visual inspection Chest: Chest palpation & inspection: normal inspection of the chest Resp: Auscultation: clear to auscultation bilaterally Cardio: Heart sounds: S1 normal heart sound present and S2 normal heart sound present GI: Palpation (GI): Tenderness to palpation present (GI) in the epigastrum and in the RUQ : General: No no CVA tenderness Back/Spine/Pelvis: Back: No no CVA tenderness Skin: General skin exam: rashes and/or lesions noted and jaundice Neuro: General: No confusion Cranial nerves: Yes Equal, round and reactive pupils present Motor exam (neuro): 5/5 motor strength present throughout Extrem: General: Yes normal to inspection Psych: Appearance: grossly normal Objective Data Current Medications Generic Name Dose Route Start Last Admin Trade Name Freq PRN Reason Stop Dose Admin Acetaminophen 650 mg 03/01/20 01:14 03/01/20 10:17 Acetaminophen 325 Mg Tablet PO 650 mg Q6H PRN Administration Pain, Severe (Pain Scale 7-10) Cyanocobalamin 1,000 mcg 03/01/20 09:00 03/01/20 10:18 Cyanocobalamin (Vitamin B-12) 1,000 Mcg Tablet PO 1,000 mcg DAILY PABLO Administration Duloxetine HCl 30 mg 02/29/20 21:00 03/01/20 10:18 Duloxetine Hcl 30 Mg Capsule. PO 30 mg BID PABLO Administration Enoxaparin Sodium 40 mg 02/29/20 15:00 02/29/20 19:25 Enoxaparin Sodium 40 Mg/0.4 Ml Syringe SUBCUT 40 mg Q24H PABLO Administration Gabapentin 900 mg 02/29/20 21:00 03/01/20 10:02 Gabapentin 300 Mg Capsule PO 900 mg TID PABLO Administration Folic Acid 1 mg/ Thiamine HCl 1,011.2 mls @ 42 mls/hr 02/29/20 11:15 03/01/20 11:40 100 mg/ Multivitamins 10 ml/ IVCONT 42 mls/hr Sodium Chloride .Q24H PABLO Administration Levetiracetam 1,500 mg 02/29/20 21:00 03/01/20 10:01 Levetiracetam Oral Soln 500 Mg/5 Ml PO 1,500 mg BID PABLO Administration Medication 1 each 03/01/20 11:45 03/01/20 11:41 No Benzodiazepines MISCELLANE 1 each DAILY PABLO Administration Multivitamins/Vitamin C 1 tab 03/01/20 09:00 03/01/20 10:03 Multivitamin Tablet PO 1 tab DAILY PABLO Administration Omeprazole 20 mg 03/01/20 06:30 03/01/20 05:52 Omeprazole 20 Mg Capsule. PO 20 mg DAILY@0630 [facility] Administration Pharmacy Consult 1 each 02/29/20 15:08 Consult Rx Perform Med Rec MISCELLANE ONCE PRN Consult order Phenobarbital 45 mg 10/02/20 09:00 03/01/20 10:03 Phenobarbital 15 Mg Tablet PO 03/02/20 21:01 45 mg BID [facility] Administration Phenobarbital 30 mg 03/03/20 09:00 Phenobarbital 30 Mg Tablet PO 03/04/20 21:01 BID [facility] Phenobarbital 15 mg 03/05/20 09:00 Phenobarbital 15 Mg Tablet PO 03/06/20 09:01 DAILY [facility] Sodium Chloride 2 ml 02/29/20 16:00 03/01/20 10:18 0.9 % Sodium Chloride Flush 3 Ml Syringe IVFLUSH 2 ml QSHIFT [facility] Administration Labs CBC & Chem 7: 03/01/20 06:12 03/01/20 06:12 Labs: Laboratory Results - last 24 hr 02/29/20 02/29/20 02/29/20 10:44 12:46 12:46 MCV MCH MCHC RDW Plt Count MPV Immature Gran % (Auto) Neut % (Auto) Lymph % (Auto) Kane % (Auto) Eos % (Auto) Baso % (Auto) Neut # (Auto) Lymph # (Auto) [place] # (Auto) Eos # (Auto) Baso # (Auto) Abs Immat Gran (auto) Absolute Nucleated RBC Nucleated RBC % (auto) PT 14.5 H INR 1.2 H Anion Gap Estim Creat Clear Calc Estimated GFR Fasting Glucose Calcium Total Bilirubin Direct Bilirubin AST ALT Alkaline Phosphatase Total Protein Albumin Urine Color JORGE Urine Appearance CLOUDY Urine pH 7.0 Ur Specific [place] 1.010 Urine Protein 1+ H Urine Glucose (UA) 100 H Urine Ketones SEE NOTE Urine Blood NEG Urine Nitrite SEE NOTE Ur Leukocyte Esterase SEE NOTE Urine RBC 0-2 Urine WBC 0-2 Ur Squamous Epith Cells 2+ Urine Bacteria TRACE Urine Test NEGATIVE Urine Opiates Screen Not Detected Ur Barbiturates Screen Not Detected Ur Phencyclidine Scrn Not Detected Ur Amphetamines Screen Not Detected U Benzodiazepines Scrn Not Detected Urine Cocaine Screen Not Detected U Marijuana (THC) Screen Not Detected Hepatitis A IgM Ab Hep Bs Antigen Hep Bs Antibody Hep B Core Total Ab Hepatitis C Ab (EIA) 03/01/20 03/01/20 03/01/20 05:44 06:12 06:12 MCV 107.9 H MCH 35.4 H MCHC 32.8 RDW 17.0 H Plt Count 122 L MPV 12.4 H Immature Gran % (Auto) 1.6 H Neut % (Auto) 69.1 Lymph % (Auto) 22.3 Kane % (Auto) 6.7 Eos % (Auto) 0.0 Baso % (Auto) 0.3 Neut # (Auto) 4.3 Lymph # (Auto) 1.4 [place] # (Auto) 0.4 Eos # (Auto) 0.0 Baso # (Auto) 0.0 Abs Immat Gran (auto) 0.10 H Absolute Nucleated RBC 0.070 H Nucleated RBC % (auto) 1.1 H PT 15.1 H INR 1.3 H Anion Gap Estim Creat Clear Calc 187.6 Estimated GFR > 60 Fasting Glucose Calcium Total Bilirubin Direct Bilirubin AST 262 H ALT 46 H Alkaline Phosphatase Total Protein Albumin Urine Color Urine Appearance Urine pH Ur Specific [place] Urine Protein Urine Glucose (UA) Urine Ketones Urine Blood Urine Nitrite Ur Leukocyte Esterase Urine RBC Urine WBC Ur Squamous Epith Cells Urine Bacteria Urine Test Urine Opiates Screen Ur Barbiturates Screen Ur Phencyclidine Scrn Ur Amphetamines Screen U Benzodiazepines Scrn Urine Cocaine Screen U Marijuana (THC) Screen Hepatitis A IgM Ab Hep Bs Antigen Hep Bs Antibody Hep B Core Total Ab Hepatitis C Ab (EIA) 03/01/20 03/01/20 06:12 06:12 MCV MCH MCHC RDW Plt Count MPV Immature Gran % (Auto) Neut % (Auto) Lymph % (Auto) [place] % (Auto) Eos % (Auto) Baso % (Auto) Neut # (Auto) Lymph # (Auto) [place] # (Auto) Eos # (Auto) Baso # (Auto) Abs Immat Gran (auto) Absolute Nucleated RBC Nucleated RBC % (auto) PT INR Anion Gap 16 Estim Creat Clear Calc 195.8 Estimated GFR > 60 Fasting Glucose 69 Calcium 8.2 L Total Bilirubin 14.9 H Direct Bilirubin 11.2 H AST ALT Alkaline Phosphatase 256 H Total Protein 5.3 L Albumin 3.0 L Urine Color Urine Appearance Urine pH Ur Specific [place] Urine Protein Urine Glucose (UA) Urine Ketones Urine Blood Urine Nitrite Ur Leukocyte Esterase Urine RBC Urine WBC Ur Squamous Epith Cells Urine Bacteria Urine Test Urine Opiates Screen Ur Barbiturates Screen Ur Phencyclidine Scrn Ur Amphetamines Screen U Benzodiazepines Scrn Urine Cocaine Screen U Marijuana (THC) Screen Hepatitis A IgM Ab Nonreactive Hep Bs Antigen Negative Hep Bs Antibody REACTIVE Hep B Core Total Ab Nonreactive Hepatitis C Ab (EIA) Nonreactive Microbiology Microbiology Results: Microbiology 02/29/20 Unknown Urine clean catch - Clean Catch Midstream Urine Culture - Final Assessment and Plan (1) Acute alcoholic hepatitis: Status: Acute (2) Alcoholic steatohepatitis: Status: Acute (3) Epilepsy: Status: Acute Assessment and Plan: 35-year-old female presented with jaundice acute alcoholic hepatitis inr 1.3, will hold off on prednisone monitor labs, slightly improved GI following follow-up us viral serologies negative alcohol dependence with withdrawal phenobarb protocol epilepsy Keppra and gabapentin
[2020-03-01] MEDS: Enoxaparin Sodium 40 MG/0.4 ML SYRINGE SUBCUT (15:09)
[2020-03-01 21:30] LABS: INTERNATIONAL NORM RATIO 1.4 (0.9-1.1); Prothrombin Time 16.3 SEC (10.8-13.0)
[2020-03-02] MEDS: Omeprazole 20 MG CAPSULE.DR PO (05:38)
[2020-03-02 08:08] LABS: Alanine Aminotransferase 43 U/L (0-31); Albumin Level 2.9 g/dL (3.5-5.0); Alkaline Phosphatase 256 U/L (39-117); Aspartate Amino Transferase 254 U/L (5-31); Bilirubin Direct 10.6 mg/dL (0.0-0.5); Bilirubin Total 13.7 mg/dL (0.0-1.0)
[2020-03-02 08:22] VITALS: BP 106/54; PULSE 97; RESP 19; TEMP 36.7; O2SAT 97
[2020-03-02] MEDS: PHENobarbitaL 15 MG TABLET 45 MG PO ×2 (08:54→22:16)
[2020-03-02] MEDS: levETIRAcetam Oral Soln 500 MG/5 ML 1500 MG PO ×2 (08:54→22:06)
[2020-03-02] MEDS: Cyanocobalamin (Vitamin B-12) 1,000 MCG TABLET 1000 MCG PO (08:54)
[2020-03-02] MEDS: DULoxetine HCl 30 MG CAPSULE.DR PO ×2 (08:54→22:08)
[2020-03-02] MEDS: Gabapentin 300 MG CAPSULE 900 MG PO ×3 (08:54→22:07)
[2020-03-02] MEDS: Multivitamin TABLET 1 TAB PO (08:54)
--- NOTE | 2020-03-02 09:42 | P.PNIM_ITS ---
Subjective Subjective Date of Service: 03/02/20 Interval History: Trouble sleeping, abdominal pain, neuropathy Cardiovascular Cardiovascular: Reports no additional cardiovascular complaints Respiratory Respiratory: Reports no additional respiratory complaints Physical Exam Vital Signs and I&O and Narrative: Vital Signs and I&O: Vital Signs Temp 98.1 F 03/02/20 08:22 Pulse 97 03/02/20 08:22 Resp 19 03/02/20 08:22 BP 106/54 L 03/02/20 08:22 Pulse Ox 97 03/02/20 08:22 Intake & Output 03/01/20 03/02/20 03/02/20 18:59 06:59 18:59 Intake Total 600 / 600 Output Total 3 / 3 Balance 600 / 597 -3 / 597 Urine Output (Aver age ml/kg/hr) 0.00 Weight 90.9 kg Intake: Intake, Oral [place] unt 600 / 600 Output: Output, Urine Am ount 3 / 3 Other: Meal Refused No No NPO No No Breakfast % Eate n 100% 100% Lunch % Eaten 75% 100% Dinner % Eaten 100% 100% Number of Incont inent Voids 3 Urine Bathroom Body Mass Index 31.4 Const: General: no acute distress and alert Orientation/consciousness: patient oriented x3 HENMT: Head: Yes normal to inspection Eyes: Sclerae: scleral abnormal (juandice) Pupils: Equal, round and reactive pupils present Neck: Neck: Yes normal visual inspection Chest: Chest palpation & inspection: normal inspection of the chest Resp: Auscultation: clear to auscultation bilaterally Cardio: Heart sounds: S1 normal heart sound present and S2 normal heart sound present GI: Palpation (GI): nontender : General: No no CVA tenderness Back/Spine/Pelvis: Back: No no CVA tenderness Skin: General skin exam: rashes and/or lesions noted and jaundice Neuro: General: patient oriented x3 Cranial nerves: Yes Equal, round and reactive pupils present Motor exam (neuro): 5/5 motor strength present throughout Extrem: General: Yes normal to inspection Psych: Appearance: grossly normal Affect: normal affect Objective Data Current Medications Generic Name Dose Route Start Last Admin Trade Name Freq PRN Reason Stop Dose Admin Acetaminophen 650 mg 03/01/20 01:14 03/01/20 21:00 Acetaminophen 325 Mg Tablet PO 650 mg Q6H PRN Administration Pain, Severe (Pain Scale 7-10) Cyanocobalamin 1,000 mcg 03/01/20 09:00 03/02/20 08:54 Cyanocobalamin (Vitamin B-12) 1,000 Mcg Tablet PO 1,000 mcg DAILY PABLO Administration Duloxetine HCl 30 mg 02/29/20 21:00 03/02/20 08:54 Duloxetine Hcl 30 Mg Capsule. PO 30 mg BID PABLO Administration Enoxaparin Sodium 40 mg 02/29/20 15:00 03/01/20 15:09 Enoxaparin Sodium 40 Mg/0.4 Ml Syringe SUBCUT 40 mg Q24H PABLO Administration Gabapentin 900 mg 02/29/20 21:00 03/02/20 08:54 Gabapentin 300 Mg Capsule PO 900 mg TID PABLO Administration Folic Acid 1 mg/ Thiamine HCl 1,011.2 mls @ 42 mls/hr 02/29/20 11:15 03/01/20 11:40 100 mg/ Multivitamins 10 ml/ IVCONT 42 mls/hr Sodium Chloride .Q24H PABLO Administration Levetiracetam 1,500 mg 02/29/20 21:00 03/02/20 08:54 Levetiracetam Oral Soln 500 Mg/5 Ml PO 1,500 mg BID [facility] Administration Multivitamins/Vitamin C 1 tab 03/01/20 09:00 03/02/20 08:54 Multivitamin Tablet PO 1 tab DAILY [facility] Administration Omeprazole 20 mg 03/01/20 06:30 03/02/20 05:38 Omeprazole 20 Mg Capsule. PO 20 mg DAILY@0630 [facility] Administration Pharmacy Consult 1 each 02/29/20 15:08 Consult Rx Perform Med Rec MISCELLANE ONCE PRN Consult order Phenobarbital 45 mg 03/01/20 09:00 03/02/20 08:54 Phenobarbital 15 Mg Tablet PO 03/02/20 21:01 45 mg BID [facility] Administration Phenobarbital 30 mg 03/03/20 09:00 Phenobarbital 30 Mg Tablet PO 03/04/20 21:01 BID [facility] Phenobarbital 15 mg 03/05/20 09:00 Phenobarbital 15 Mg Tablet PO 03/06/20 09:01 DAILY [facility] Sodium Chloride 2 ml 02/29/20 16:00 03/02/20 07:38 0.9 % Sodium Chloride Flush 3 Ml Syringe IVFLUSH Not Given QSHIFT [facility] Labs CBC & Chem 7: 03/01/20 06:12 03/01/20 06:12 Labs: Laboratory Results - last 24 hr 02/29/20 03/01/20 03/01/20 10:43 06:12 21:13 MCV 105.2 H MCH 35.6 H MCHC 33.8 RDW 16.9 H Plt Count 150 L MPV 11.4 Immature Gran % (Auto) 1.0 H Neut % (Auto) 75.1 H Lymph % (Auto) 13.5 L [place] % (Auto) 7.7 Eos % (Auto) 2.4 Baso % (Auto) 0.3 Neut # (Auto) 5.2 Lymph # (Auto) 0.9 L [place] # (Auto) 0.5 Eos # (Auto) 0.2 Baso # (Auto) 0.0 Abs Immat Gran (auto) 0.07 H Absolute Nucleated RBC 0.100 H Nucleated RBC % (auto) 1.4 H Smear Path Review SEE NOTE PT 16.3 H INR 1.4 H Total Bilirubin Direct Bilirubin AST ALT Alkaline Phosphatase Total Protein Albumin Hepatitis A IgM Ab Nonreactive Hep Bs Antigen Negative Hep Bs Antibody REACTIVE Hep B Core Total Ab Nonreactive Hepatitis C Ab (EIA) Nonreactive 03/02/20 06:48 MCV MCH MCHC RDW Plt Count MPV Immature Gran % (Auto) Neut % (Auto) Lymph % (Auto) [place] % (Auto) Eos % (Auto) Baso % (Auto) Neut # (Auto) Lymph # (Auto) [place] # (Auto) Eos # (Auto) Baso # (Auto) Abs Immat Gran (auto) Absolute Nucleated RBC Nucleated RBC % (auto) Smear Path Review PT INR Total Bilirubin 13.7 H Direct Bilirubin 10.6 H AST 254 H ALT 43 H Alkaline Phosphatase 256 H Total Protein 5.0 L Albumin 2.9 L Hepatitis A IgM Ab Hep Bs Antigen Hep Bs Antibody Hep B Core Total Ab Hepatitis C Ab (EIA) Microbiology Microbiology Results: Microbiology 02/29/20 Unknown Urine clean catch - Clean Catch Midstream Urine Culture - Final Assessment and Plan (1) Acute alcoholic hepatitis: Status: Acute (2) Alcoholic steatohepatitis: Status: Acute (3) Epilepsy: Status: Acute Assessment and Plan: 35-year-old female presented with jaundice acute alcoholic hepatitis DF ok, will hold off on prednisone monitor labs, slightly improved GI following viral serologies negative alcohol dependence with withdrawal phenobarb protocol epilepsy Keppra and gabapentin
[2020-03-02] MEDS: Lactulose 20 GM/30 ML SOLUTION PO (10:22)
[2020-03-02] MEDS: Enoxaparin Sodium 40 MG/0.4 ML SYRINGE SUBCUT (14:41)
[2020-03-02 16:00] VITALS: BP 109/60; PULSE 95; TEMP 36.2; O2SAT 99
[2020-03-02] MEDS: Acetaminophen 325 MG TABLET 650 MG PO (18:50)
[2020-03-02 23:08] VITALS: BP 106/56; PULSE 94; RESP 19; TEMP 36.6; O2SAT 98
[2020-03-03] MEDS: Omeprazole 20 MG CAPSULE.DR PO (05:50)
[2020-03-03 07:39] LABS: MANUAL DIFF FLAG NO
[2020-03-03 07:44] LABS: Basophils Percent Auto 0.3 % (0-2); Hematocrit 23.8 % (37-47); Hemoglobin 7.8 g/dl (12.0-16.0); Imm Gran Abs Auto 0.11 X10*3/uL (0.00-0.03); Imm Gran Pct Auto 1.8 % (0.0-0.4); Lymphocytes Absolute Auto 1.2 X10*3/uL (1.2-4.9); Lymphocytes Percent Auto 19.5 % (20-40); Mean Corpuscular HGB Conc 32.8 g/dl (31.0-35.0); Mean Corpuscular Hemoglobin 35.3 pg (27.0-33.0); Mean Corpuscular Volume 107.7 fL (80-98); Mean Platelet Volume 11.4 fL (9.4-12.3); Monocytes Absolute Auto 0.5 X10*3/uL (0.1-1.2); Monocytes Percent Auto 7.6 % (2-11); Neutrophils Absolute Auto 4.2 X10*3/uL (2.0-8.3); Neutrophils Percent Auto 70.8 % (45-73); Platelet Count 159 X10*3/uL (160-400); Red Blood Count 2.21 X10*6/uL (4.20-5.50); Red Cell Distribution Width 18.5 % (11.0-16.0)
[2020-03-03 07:58] LABS: INTERNATIONAL NORM RATIO 1.4 (0.9-1.1); Prothrombin Time 16.5 SEC (10.8-13.0)
[2020-03-03 08:00] VITALS: BP 106/58; PULSE 93; RESP 18; TEMP 36.6; O2SAT 96
[2020-03-03 08:13] LABS: Alanine Aminotransferase 39 U/L (0-31); Albumin Level 2.7 g/dL (3.5-5.0); Alkaline Phosphatase 247 U/L (39-117); Aspartate Amino Transferase 214 U/L (5-31); Bilirubin Direct 10.3 mg/dL (0.0-0.5); Bilirubin Total 12.9 mg/dL (0.0-1.0); Total Protein 4.7 g/dL (6.5-8.0)
[2020-03-03] MEDS: Gabapentin 300 MG CAPSULE 900 MG PO (08:42)
[2020-03-03] MEDS: PHENobarbitaL 30 MG TABLET PO (08:43)
[2020-03-03] MEDS: Multivitamin TABLET 1 TAB PO (08:43)
[2020-03-03] MEDS: DULoxetine HCl 30 MG CAPSULE.DR PO (08:43)
[2020-03-03] MEDS: levETIRAcetam Oral Soln 500 MG/5 ML 1500 MG PO (08:43)
[2020-03-03] MEDS: Cyanocobalamin (Vitamin B-12) 1,000 MCG TABLET 1000 MCG PO (08:43)
--- NOTE | 2020-03-03 09:44 | PM.DS ---
DS: Providers Provider Date of admission: 02/29/20 14:47 Primary care physician: Queta Santiago NP Consults: 02/29/20 14:22 Consult to Gastroenterology Routine Consulting Provider: Crispin Pritchett Reason for consultation: hepatitis Has provider been notified: Yes DS: Diagnosis Discharge Diagnosis (1) Acute alcoholic hepatitis: Status: Acute (2) Alcoholic steatohepatitis: Status: Acute (3) Epilepsy: Status: Acute (4) Alcohol dependence with withdrawal: Status: Acute DS: Summary Hospital Course Hospital Course: patient was admitted for acute alcoholic hepatitis complicated by alcohol dependence with withdrawal. She was given phenobarbital and withdrawal symptoms improved. She was not given steroids as her discriminant function was under 32. her bilirubin and liver enzymes improved. Her abdominal discomfort improved. She will be discharged home and follow-up with GI as outpatient. Time Spent with Patient Time attestation: Total time spent providing and/or coordinating discharge services: Physical Exam Vital Signs and I&O and Narrative: Vital Signs and I&O: Vital Signs Temp 97.8 F 03/03/20 08:00 Pulse 93 03/03/20 08:00 Resp 18 03/03/20 08:00 BP 106/58 L 03/03/20 08:00 Pulse Ox 96 03/03/20 08:00 Intake & Output 03/02/20 03/03/20 03/03/20 18:59 06:59 18:59 Intake Total 600 / 1000 400 / 1000 Balance 600 / 1000 400 / 1000 Intake: Intake, Oral Sarah unt 600 / 1000 400 / 1000 Other: Number of Unmeas ured Voids 3 Number of Bowel Movements 1 Urine Bathroom Last Bowel Movem ent 03/02/20 03/02/20 Stool Bathroom Bathroom Body Mass Index 31.4 Eyes: Other: Scleral icterus Resp: Auscultation: clear to auscultation bilaterally GI: Palpation (GI): nontender DS: Data Data Completed and Pending Labs on day of discharge: Labs from last 24 hours 03/03/20 03/03/20 03/03/20 07:21 07:21 07:21 WBC 6.0 RBC 2.21 L Hgb 7.8 L Hct 23.8 L MCV 107.7 H MCH 35.3 H MCHC 32.8 RDW 18.5 H Plt Count 159 L D MPV 11.4 Immature Gran % (Auto) 1.8 H Neut % (Auto) 70.8 Lymph % (Auto) 19.5 L [place] % (Auto) 7.6 Eos % (Auto) 0.0 Baso % (Auto) 0.3 Neut # (Auto) 4.2 Lymph # (Auto) 1.2 [place] # (Auto) 0.5 Eos # (Auto) 0.0 Baso # (Auto) 0.0 Abs Immat Gran (auto) 0.11 H Absolute Nucleated RBC 0.000 Nucleated RBC % (auto) 0.0 PT 16.5 H INR 1.4 H Total Bilirubin 12.9 H Direct Bilirubin 10.3 H AST 214 H ALT 39 H Alkaline Phosphatase 247 H Total Protein 4.7 L Albumin 2.7 L Discharge Plan Discharge Patient Disposition: Home, Self-Care Referrals: home no services [Other] Crispin Pritchett MD [Physician] - ( alcoholic hepatitis) Queta Santiago NP [Primary Care Provider] - Discharge Medications: Continued multivitamin Tablet 1 tab PO DAILY RF: 0 cyanocobalamin (vitamin B-12) 1,000 mcg Tablet 1,000 mcg PO DAILY RF: 0 pantoprazole [Protonix] 20 mg Tablet,Delayed Release (Dr/Ec) 20 mg PO DAILY RF: 0 hydrochlorothiazide 25 mg Tablet 25 mg PO DAILY RF: 0 levetiracetam [Keppra] 100 mg/mL Solution 1,500 mg PO BID RF: 0 duloxetine 30 mg Capsule,Delayed Release(Dr/Ec) 30 mg PO BID RF: 0 gabapentin 300 mg Tablet 900 mg PO TID RF: 0 Discharge Orders: Discharge Order (Routine); Ordered 03/03/20 Ordered By: Kurtis Mason Activity on Discharge: As tolerated Visit Report Forms: Patient Portal Discharge page Care Plan Goals: manage alcoholic hepatitis Health Concerns: alcoholic hepatitis Plan of Treatment: avoid alcohol, follow with Gastroenterology
--- NOTE | 2020-03-03 10:00 | MHC.CM.PN ---
PT TO BE DISCHARGED HOME TODAY WITH NO SERVICES PT TO ARRANGE TRANSPORT
[2020-03-04 18:26] LABS: Anti Nuclear Antibody Screen NEGATIVE (NEGATIVE)
== END 2020-03-03 12:00 | disposition home or self-care (01) | DRG 280 ==
LOC: HO.ED 15:52 → HO.IMC 15:58 → HO.S3 16:20
PROVIDERS: Nurse Practitioner Primary Care; Admitting Provider Internal Medicine; Emergency Provider Emergency Medicine; PCP Nurse Practitioner Family; Visit Provider Internal Medicine
DX: K70.10 Alcoholic hepatitis without ascites (principal); F10.239 Alcohol dependence with withdrawal, unspecified; G40.909 Epilepsy, unspecified, not intractable, without status epilepticus; F17.210 Nicotine dependence, cigarettes, uncomplicated; Z71.6 Tobacco abuse counseling; Z97.5 Presence of (intrauterine) contraceptive device; Z88.2 Allergy status to sulfonamides; Z98.84 Bariatric surgery status; Z79.891 Long term (current) use of opiate analgesic; Z79.899 Other long term (current) drug therapy
CPT/HCPCS: 36415; 71045; 74176; 80048; 80053; 80076; 80307; 80320; 81001; 81025; 82040; 82247; 82248; 82565; 83690; 84075; 84155; 84450; 84460; 84520; 85025; 85060; 85610; 85730; 86038; 86039; 86704; 86706; 86709; 86803; 87086; 87340; 96361; 96365; 96375; 99284; 99285; J1650; J2060; J2560; J3411

== ENCOUNTER 2020-03-08 04:55 | Emergency (ER) | payer MEDICAID, SELFPAY ==
[2020-03-08 05:01] VITALS: BP 102/67; PULSE 110; RESP 16; TEMP 36.8; O2SAT 93
[2020-03-08 05:10] VITALS: BP 96/58; PULSE 109; RESP 18; TEMP 36.8; O2SAT 98; BMI 33.5
[2020-03-08 05:42] LABS: Baso%MD 0.2 %; Hematocrit 30.5 % (37-47); Hemoglobin 9.9 g/dl (12.0-16.0); IG%MD 0.8 %; Lymph%MD 14.9 %; Mean Corpuscular HGB Conc 32.5 g/dl (31.0-35.0); Mean Corpuscular Hemoglobin 35.1 pg (27.0-33.0); Mean Corpuscular Volume 108.2 fL (80-98); Mean Platelet Volume 11.4 fL (9.4-12.3); Mono%MD 4.9 %; Neut%MD 79.2 %; Platelet Count 238 X10*3/uL (160-400); Red Blood Count 2.82 X10*6/uL (4.20-5.50); Red Cell Distribution Width 16.5 % (11.0-16.0); White Blood Count 8.4 X10*3/uL (4.8-10.8)
[2020-03-08 06:12] LABS: Anion Gap 14 (12-20); Blood Urea Nitrogen 5 mg/dL (9-16); Calcium 7.9 mg/dL (8.4-10.2); Carbon Dioxide 32 mmol/L (22-29); Chloride 90 mmol/L (96-108); Creatinine Clr Calc Pharmacy 186.1; Estimated Glomerular Filt Rate > 60; Glucose Random 81 mg/dL (60-115); Potassium 3.1 mmol/l (3.3-5.1); Sodium 133 mmol/L (135-145)
[2020-03-08 06:15] LABS: Band Neutrophils Percent 20 % (3-5); Lymphocytes Absolute Manual 1.8 X10*3/uL (0.6-4.8); Lymphocytes Percent Manual 21 % (20-40); Monocytes Absolute Manual 0.8 X10*3/uL (0.0-1.2); Monocytes Percent Manual 10 % (2-11); Neutrophils Absolute Manual 5.8 X10*3/uL (2.2-7.9); Neutrophils Percent Manual 49 % (45-73)
[2020-03-08 06:17] LABS: Macrocytosis 1+; RBC Morphology NOTED
[2020-03-08 06:18] LABS: Platelet Estimate NORMAL (NORMAL); Platelet Morphology Comment NORMAL; Polychromasia 1+; Target Cells 1+
[2020-03-08 06:22] LABS: INTERNATIONAL NORM RATIO 1.4 (0.9-1.1); Prothrombin Time 16.2 SEC (10.8-13.0)
--- NOTE | 2020-03-08 06:24 | PC.NURSE ---
critical lactic acid 2.3. reported md
[2020-03-08 06:25] LABS: Lactic Acid 2.3 mmol/L (0.5-2.0)
--- NOTE | 2020-03-08 06:27 | PC.NURSE ---
pharmacy contacted for k+, they will bring med up when available.
[2020-03-08] MEDS: 0.9 % Sodium Chloride 1,000 ML 999 ML IVCONT (06:31)
[2020-03-08 06:51] LABS: Alanine Aminotransferase 36 U/L (0-31); Albumin Level 2.9 g/dL (3.5-5.0); Alkaline Phosphatase 301 U/L (39-117); Aspartate Amino Transferase 200 U/L (5-31); Bilirubin Direct 12.6 mg/dL (0.0-0.5); Bilirubin Total 17.1 mg/dL (0.0-1.0); Magnesium 1.9 mg/dL (1.6-2.6); Total Protein 5.5 g/dL (6.5-8.0)
--- NOTE | 2020-03-08 07:09 | ECG_ITS ---
Test Reason : ABNORMAL LABS Blood Pressure : / mmHG Vent. Rate : 107 BPM Atrial Rate : 107 BPM P-R Int : 144 ms QRS Dur : 080 ms QT Int : 358 ms P-R-T Axes : 039 016 018 degrees QTc Int : 477 ms Sinus tachycardia T wave abnormality, consider inferior ischemia ST depression, consider subendocardial injury Anterolateral leads Abnormal ECG When compared with ECG of 17-JUN-2018 01:56, T wave inversion now evident in Inferior leads ST depression in Anterolateral leads is new Referred By: Khalif Haley Electronically Signed By:RITA WILKES MD
--- NOTE | 2020-03-08 07:09 | ED_ITS ---
HPI - Recheck/Abnormal Lab/Rx General Chief Complaint: Recheck/Abnormal Lab/Rx Stated Complaint: abnormal labs Time Seen by Provider: 03/08/20 06:17 Source: patient Mode of arrival: ambulatory Limitations: no limitations History of Present Illness HPI narrative: patient alcoholic cirrhosis and just discharged home 4 days ago after she was admitted for alcoholic cirrhosis patient had the labs drawn yesterday which showed potassium of 2.6 otherwise patient feeling fine still bloated feels weak patient denies use of alcohol in last 10 days patient denies any confusion or asterixis no nausea no vomiting having 3 meals a day plan to see blood bank order control clerk next week Related Data Home Medications Medication Instructions Recorded Confirmed cyanocobalamin (vitamin B-12) 1,000 mcg PO DAILY 02/29/20 02/29/20 duloxetine 30 mg PO BID 02/29/20 02/29/20 gabapentin 900 mg PO TID 02/29/20 02/29/20 hydrochlorothiazide 25 mg PO DAILY 02/29/20 02/29/20 levetiracetam [Keppra] 1,500 mg PO BID 02/29/20 02/29/20 multivitamin 1 tab PO DAILY 02/29/20 02/29/20 pantoprazole [Protonix] 20 mg PO DAILY 02/29/20 02/29/20 Previous Rx's Medication Instructions Recorded lactulose 20 g PO DAILY #1200 ml 03/08/20 potassium chloride [Klor-Con 10] 10 meq PO DAILY #20 tab 03/08/20 Allergies Allergy/AdvReac Type Severity Reaction Status Date / Time iron dextran complex Allergy Severe ANAPHYLAXIS Verified 02/29/20 10:57 [IRON DEXTRAN COMPLEX] Sulfa (Sulfonamide Allergy Intermediate RASH/LIPS Verified 02/29/20 10:57 Antibiotics) SWELL [SULFA (SULFONAMIDE ANTIBIOTICS)] bactrim Allergy Unknown Rash Uncoded 02/29/20 10:31 iron dextran Allergy Unknown Anaphylaxis Uncoded 02/29/20 10:31 Review of Systems Constitutional: Constitutional: Reports fatigue and Reports weakness Eyes: Comments: yellow discoloration ENT: Reports system reviewed and no additional complaints, except as documented and Denies disequilibrium Cardiovascular: Cardiovascular: Reports no additional cardiovascular complaints Respiratory: Respiratory: Reports no additional respiratory complaints Gastrointestinal: Gastrointestinal: Reports bloating Genitourinary: Genitourinary: Reports no additional female genitourinary complaints Musculoskeletal: Musculoskeletal: Denies abnormal gait and Denies tingling Neurologic: Denies Neuro-related abnormal movements, Denies abnormal gait, Denies focal weakness, Denies memory loss, Denies Sensory deficit (Neuro), Denies tingling, Denies paresthesias, Denies disequilibrium and Reports weakness Psychiatric: Psychiatric: Reports no additional psychiatric complaints and Denies memory loss Endocrine: Endocrine: Reports fatigue PMFSH Past Medical History Medical History Alcoholic steatohepatitis Superficial thrombophlebitis Surgical History Gastric bypass status for obesity History of adenoidectomy Hx of tonsillectomy Previous back surgery Social History Social History Alcohol intake: former Smoking Status: Current every day smoker Use of substances other than those prescribed or required for medical reasons: No Advance Directives: No Advance Directives Information Provided: No service: No Current occupational status: unemployed Physical Exam Vital Signs and I&O and Narrative: Vital Signs and I&O: Vital Signs Temp 97.6 F 03/08/20 11:59 Pulse 100 03/08/20 11:59 Resp 18 03/08/20 11:59 BP 110/68 03/08/20 11:59 Pulse Ox 98 03/08/20 11:59 Intake & Output 03/07/20 03/08/20 03/08/20 18:59 06:59 18:59 Intake Total 1200 / 1200 Balance 1200 / 1200 Weight 97.069 kg Intake: Intake, IV Amoun t 1200 / 1200 Potassium Chlo ride/H20 10 meq 200 / 200 In 100 ml @ 10 0 mls/hr IV Q1H PABLO Rx#:[id number] 0.9 % Sodium C hloride 1,000 ml 1000 / 1000 @ 999 mls/hr I VCONT .Q1H1M PABLO Rx#:[id number] Body Mass Index 33.5 Appearance: Alert. Oriented X3. No acute distress. Eyes: Pupils equal, round and reactive to light. deep icterus ENT: Pharynx normal. Neck: Normal inspection. Neck supple. CVS: Normal heart rate and rhythm. Pulses normal. Respiratory: No respiratory distress. Breath sounds normal. Abdomen: Soft and nontender. no ascites Skin: Skin warm and dry. icteric. Normal skin turgor. Extremities: No lower extremity edema. No lower extremity edema. Neuro: Oriented X 3. No motor deficit. No sensory deficit. no asterixis Neuro: Sensory Exam: No Sensory deficit (Neuro) Course Course Course Narrative: patient elevated ammonia level with worsening of hepatic failure secondary to alcohol like cirrhosis with low potassium level without any EKG changes. Patient received IV potassium in the ER. Patient ammonia level slightly elevated 68 was given lactulose. At this time patient has no confusion patient has a plan to see blood bank order control clerk will discharge her home on lactulose and potassium tablets MDM - Recheck/Abnormal Lab/Rx Lab Data Result diagrams: 03/08/20 05:34 03/08/20 05:34 Labs: Lab Results 03/08/20 03/08/20 03/08/20 Range/Units 05:34 05:34 05:34 WBC 8.4 (4.8-10.8) X10*3/uL RBC 2.82 L D (4.20-5.50) X10*6/uL Hgb 9.9 L D (12.0-16.0) g/dl Hct 30.5 L D (37-47) % MCV 108.2 H (80-98) fL MCH 35.1 H (27.0-33.0) pg MCHC 32.5 (31.0-35.0) g/dl RDW 16.5 H (11.0-16.0) % Plt Count 238 D (160-400) X10*3/uL MPV 11.4 (9.4-12.3) fL Absolute Nucleated RBC 0.000 (0.0-0.012) X10*3/uL Nucleated RBC % (auto) 0.0 (0.0-0.2) /100WBC Neutrophils % (Manual) 49 (45-73) % Band Neutrophils % 20 H (3-5) % Lymphocytes % (Manual) 21 (20-40) % Monocytes % (Manual) 10 (2-11) % Abs Neuts (Manual) 5.8 (2.2-7.9) X10*3/uL Lymphocytes # (Manual) 1.8 (0.6-4.8) X10*3/uL Monocytes # (Manual) 0.8 (0.0-1.2) X10*3/uL Platelet Estimate NORMAL (NORMAL) Plt Morphology Comment NORMAL RBC Morphology NOTED Polychromasia 1+ Macrocytosis 1+ Target Cells 1+ PT 16.2 H (10.8-13.0) SEC INR 1.4 H (0.9-1.1) APTT (24.1-38.0) SEC Hold Blue Top SEE NOTE Sodium 133 L (135-145) mmol/L Potassium 3.1 L (3.3-5.1) mmol/l Chloride 90 L (96-108) mmol/L Carbon Dioxide 32 H (22-29) mmol/L Anion Gap 14 (12-20) BUN 5 L (9-16) mg/dL Creatinine 0.50 (0.5-1.4) mg/dL Estim Creat Clear Calc 186.1 Estimated GFR > 60 Random Glucose 81 (60-115) mg/dL Lactic Acid (0.5-2.0) mmol/L Lactic Acid Fup @ 2Hr (0.5-2.0) mmol/L Calcium 7.9 L (8.4-10.2) mg/dL Magnesium 1.9 (1.6-2.6) mg/dL Total Bilirubin 17.1 H (0.0-1.0) mg/dL Direct Bilirubin 12.6 H (0.0-0.5) mg/dL AST 200 H (5-31) U/L ALT 36 H (0-31) U/L Alkaline Phosphatase 301 H D (39-117) U/L Ammonia (13-55) umol/L Total Protein 5.5 L (6.5-8.0) g/dL Albumin 2.9 L (3.5-5.0) g/dL Urine Color Urine Appearance Urine pH (5.0-8.0) Ur Specific [place] (1.005-1.025) Urine Protein (NEG-TRACE) MG/DL Urine Glucose (UA) (NEG) MG/DL Urine Ketones (NEG) MG/DL Urine Blood (NEG) Urine Nitrite (NEG) Ur Leukocyte Esterase (NEG) Urine Test (NEGATIVE) 03/08/20 03/08/20 03/08/20 Range/Units 05:34 08:33 08:41 WBC (4.8-10.8) X10*3/uL RBC (4.20-5.50) X10*6/uL Hgb (12.0-16.0) g/dl Hct (37-47) % MCV (80-98) fL MCH (27.0-33.0) pg MCHC (31.0-35.0) g/dl RDW (11.0-16.0) % Plt Count (160-400) X10*3/uL MPV (9.4-12.3) fL Absolute Nucleated RBC (0.0-0.012) X10*3/uL Nucleated RBC % (auto) (0.0-0.2) /100WBC Neutrophils % (Manual) (45-73) % Band Neutrophils % (3-5) % Lymphocytes % (Manual) (20-40) % Monocytes % (Manual) (2-11) % Abs Neuts (Manual) (2.2-7.9) X10*3/uL Lymphocytes # (Manual) (0.6-4.8) X10*3/uL Monocytes # (Manual) (0.0-1.2) X10*3/uL Platelet Estimate (NORMAL) Plt Morphology Comment RBC Morphology Polychromasia Macrocytosis Target Cells PT (10.8-13.0) SEC INR (0.9-1.1) APTT (24.1-38.0) SEC Hold Blue Top Sodium (135-145) mmol/L Potassium (3.3-5.1) mmol/l Chloride (96-108) mmol/L Carbon Dioxide (22-29) mmol/L Anion Gap (12-20) BUN (9-16) mg/dL Creatinine (0.5-1.4) mg/dL Estim Creat Clear Calc Estimated GFR Random Glucose (60-115) mg/dL Lactic Acid 2.3 H* (0.5-2.0) mmol/L Lactic Acid Fup @ 2Hr 2.4 H* (0.5-2.0) mmol/L Calcium (8.4-10.2) mg/dL Magnesium (1.6-2.6) mg/dL Total Bilirubin (0.0-1.0) mg/dL Direct Bilirubin (0.0-0.5) mg/dL AST (5-31) U/L ALT (0-31) U/L Alkaline Phosphatase (39-117) U/L Ammonia (13-55) umol/L Total Protein (6.5-8.0) g/dL Albumin (3.5-5.0) g/dL Urine Color ORANGE Urine Appearance HAZY Urine pH 6.5 (5.0-8.0) Ur Specific [place] 1.015 (1.005-1.025) Urine Protein NEG (NEG-TRACE) MG/DL Urine Glucose (UA) NEG (NEG) MG/DL Urine Ketones NEG (NEG) MG/DL Urine Blood NEG (NEG) Urine Nitrite NEG (NEG) Ur Leukocyte Esterase NEG (NEG) Urine Test NEGATIVE (NEGATIVE) 03/08/20 03/08/20 Range/Units 08:41 08:41 WBC (4.8-10.8) X10*3/uL RBC (4.20-5.50) X10*6/uL Hgb (12.0-16.0) g/dl Hct (37-47) % MCV (80-98) fL MCH (27.0-33.0) pg MCHC (31.0-35.0) g/dl RDW (11.0-16.0) % Plt Count (160-400) X10*3/uL MPV (9.4-12.3) fL Absolute Nucleated RBC (0.0-0.012) X10*3/uL Nucleated RBC % (auto) (0.0-0.2) /100WBC Neutrophils % (Manual) (45-73) % Band Neutrophils % (3-5) % Lymphocytes % (Manual) (20-40) % Monocytes % (Manual) (2-11) % Abs Neuts (Manual) (2.2-7.9) X10*3/uL Lymphocytes # (Manual) (0.6-4.8) X10*3/uL Monocytes # (Manual) (0.0-1.2) X10*3/uL Platelet Estimate (NORMAL) Plt Morphology Comment RBC Morphology Polychromasia Macrocytosis Target Cells PT 16.9 H (10.8-13.0) SEC INR 1.4 H (0.9-1.1) APTT 34.6 (24.1-38.0) SEC Hold Blue Top Sodium (135-145) mmol/L Potassium (3.3-5.1) mmol/l Chloride (96-108) mmol/L Carbon Dioxide (22-29) mmol/L Anion Gap (12-20) BUN (9-16) mg/dL Creatinine (0.5-1.4) mg/dL Estim Creat Clear Calc Estimated GFR Random Glucose (60-115) mg/dL Lactic Acid (0.5-2.0) mmol/L Lactic Acid Fup @ 2Hr (0.5-2.0) mmol/L Calcium (8.4-10.2) mg/dL Magnesium (1.6-2.6) mg/dL Total Bilirubin (0.0-1.0) mg/dL Direct Bilirubin (0.0-0.5) mg/dL AST (5-31) U/L ALT (0-31) U/L Alkaline Phosphatase (39-117) U/L Ammonia 68 H (13-55) umol/L Total Protein (6.5-8.0) g/dL Albumin (3.5-5.0) g/dL Urine Color Urine Appearance Urine pH (5.0-8.0) Ur Specific [place] (1.005-1.025) Urine Protein (NEG-TRACE) MG/DL Urine Glucose (UA) (NEG) MG/DL Urine Ketones (NEG) MG/DL Urine Blood (NEG) Urine Nitrite (NEG) Ur Leukocyte Esterase (NEG) Urine Test (NEGATIVE) Discharge Plan Discharge Clinical Impression: Chronic hypokalemia Alcoholic cirrhosis Qualifiers: Ascites presence: without ascites Qualified Code(s): K70.30 - Alcoholic cirrhosis of liver without ascites Patient Disposition: Home, Self-Care Instructions: Cirrhosis (ED), Hypokalemia (ED) Additional Instructions: do not drink alcohol and follow-up with blood bank order control clerk as planned. Have extra banana daily. Take potassium tablets also daily. Take lactulose to have diarrhea. Report to the ER if change in mental status /confusion Prescriptions: New lactulose 20 gram/30 mL solution 20 g PO DAILY Qty: 1200 RF: 0 potassium chloride [Klor-Con 10] 10 mEq tablet extended release 10 meq PO DAILY Qty: 20 RF: 0 No Action multivitamin Tablet 1 tab PO DAILY RF: 0 cyanocobalamin (vitamin B-12) 1,000 mcg Tablet 1,000 mcg PO DAILY RF: 0 pantoprazole [Protonix] 20 mg Tablet,Delayed Release (Dr/Ec) 20 mg PO DAILY RF: 0 hydrochlorothiazide 25 mg Tablet 25 mg PO DAILY RF: 0 levetiracetam [Keppra] 100 mg/mL Solution 1,500 mg PO BID RF: 0 duloxetine 30 mg Capsule,Delayed Release(Dr/Ec) 30 mg PO BID RF: 0 gabapentin 300 mg Tablet 900 mg PO TID RF: 0 Referrals: Crispin Pritchett MD [Physician] - 2 days
[2020-03-08] MEDS: Potassium Chloride/H20 10 MEQ/100 ML PIGGYBACK 100 MEQ IV ×2 (07:17→08:47)
[2020-03-08 07:25] VITALS: BP 121/74; PULSE 103; RESP 20; TEMP 36.9; O2SAT 98
[2020-03-08 07:39] LABS: Reflex Lactate? Lactic Acid Added
[2020-03-08 08:37] VITALS: BP 124/68; PULSE 106; RESP 18; TEMP 36.6; O2SAT 98
[2020-03-08 08:53] LABS: Glucose Urine UA NEG (NEG); Leukocyte Esterase Urine NEG (NEG); Nitrite Urine NEG (NEG); PH 6.5 (5.0-8.0); Specific Gravity - Urine 1.015 (1.005-1.025); Urine Blood NEG (NEG); Urine Ketones NEG (NEG); Urine Protein NEG (NEG-TRACE)
--- NOTE | 2020-03-08 08:54 | PC.NURSE ---
PT WAITING ON LAB RESULTS AND DISPO, POTENTIAL FOR ADMISSION.
[2020-03-08 08:55] LABS: INTERNATIONAL NORM RATIO 1.4 (0.9-1.1); Prothrombin Time 16.9 SEC (10.8-13.0)
[2020-03-08 08:58] LABS: Partial Thromboplastin Time 34.6 SEC (24.1-38.0)
[2020-03-08 08:58] LABS: Appearance Urine HAZY; Color Urine ORANGE; UACC Culture Trigger NO
[2020-03-08 08:59] LABS: UPreg QC Valid YES; Urine Pregnancy NEGATIVE (NEGATIVE)
[2020-03-08 09:02] LABS: Ammonia 68 umol/L (13-55)
[2020-03-08 09:11] LABS: ~Lactic Acid-LAB USE ONLY 2.4 mmol/L (0.5-2.0)
[2020-03-08 10:00] VITALS: BP 107/61; PULSE 104; RESP 18; TEMP 36.9; O2SAT 96
[2020-03-08] MEDS: Lactulose 20 GM/30 ML SOLUTION 30 GM PO (10:40)
[2020-03-08 10:45] LABS: Reflex Lactate? 2 Y
--- NOTE | 2020-03-08 11:24 | PC.NURSE ---
plan for dc provider will update pt
[2020-03-08 11:59] VITALS: BP 110/68; PULSE 100; RESP 18; TEMP 36.4; O2SAT 98
== END 2020-03-08 12:32 | disposition home or self-care (01) ==
PROVIDERS: Student in an Organized Health Care Education/Training Program; Emergency Provider Internal Medicine; PCP Nurse Practitioner Family
DX: R79.89 Other specified abnormal findings of blood chemistry (principal)
CPT/HCPCS: 36415; 80048; 80076; 81003; 81025; 82140; 83605; 83735; 85007; 85027; 85610; 85730; 87040; 93005; 96361; 96365; 99284; 99285

== ENCOUNTER 2020-03-11 12:46 | Emergency (ER) | payer MEDICAID, SELFPAY ==
[2020-03-11 13:31] VITALS: BP 114/61; PULSE 105; RESP 16; TEMP 36.8; O2SAT 100; BMI 33.5
[2020-03-11 13:39] VITALS: BP 114/61; PULSE 105; RESP 16; TEMP 36.8; O2SAT 100
--- NOTE | 2020-03-11 13:43 | MR_ITS ---
EXAMINATION: MR ABDOMEN WITHOUT CONTRAST (MRCP) CLINICAL INFORMATION: History abdominal pain. Assess for cholecystitis, common duct stone. COMPARISON: CT abdomen and pelvis noncontrast 02/29/2020. TECHNIQUE: MR abdomen is performed without gadolinium contrast. Imaging is performed in the coronal and axial plane. Additional MRCP sequence also included. FINDINGS: LUNG BASES: The visualized lung bases are unremarkable. LIVER, GALLBLADDER, AND BILIARY TREE: The liver is enlarged similar to recent CT measuring 30 cm in length. There is diffuse decreased signal on out of phase imaging consistent with hepatic steatosis. Again, there is small circumscribed benign-appearing lesion anterior right lobe measuring approximately 8 x 13 mm, high signal on in phase imaging and decreased signal on out of phase imaging without T2 signal, possibly hemorrhagic cyst or fatty lesion. The remainder the liver is homogeneous. The liver surface is smooth. The gallbladder is distended normally at 3.9 cm in caliber. There are fine dependent filling defects in the lumen suggesting fine gravel-like calculi. There is no gallbladder wall thickening or surrounding inflammatory changes. There is no intrahepatic or extrahepatic biliary ductal dilatation. Common duct measures approximately 6 mm in caliber. There is no visible intraluminal ductal filling defect. No extrinsic compression or displacement or stricture. PANCREAS: Unremarkable. SPLEEN: Spleen is enlarged measuring 15.5 cm in sagittal dimension similar to recent CT. Spleen is homogeneous. ADRENAL GLANDS: Unremarkable. KIDNEYS AND URETERS: The kidneys appear symmetric and normal in signal. No hydronephrosis. GASTROINTESTINAL TRACT: Prior gastric bypass. No obstruction. There is mild ascites around the liver and spleen. No focal fluid collection. ABDOMINAL WALL: No significant hernia is appreciated. LYMPH NODES: No lymphadenopathy. VASCULAR: Unremarkable. OSSEOUS STRUCTURES: Marrow signal normal. IMPRESSION: 1. Suspect fine gravel-like calculi in the dependent gallbladder. No gallbladder wall thickening, biliary ductal dilatation, or visible choledocholithiasis. 2. Hepatosplenomegaly similar to recent CT. Diffuse hepatic steatosis. Mild ascites.
--- NOTE | 2020-03-11 14:02 | ED_ITS ---
HPI - Abdominal Pain General Chief Complaint: Abdominal Pain Stated Complaint: abd pain Time Seen by Provider: 03/11/20 13:25 History of Present Illness HPI narrative: Patient presents to ED for further evaluation of abdominal pain. Patient was seen today at [facility] and was told to come to the ED due to ultrasound reading of possible cholecystitis with common bile duct dilat ation. Patient states her skin has been very jaundiced the past 2 weeks. Patient was recently admitted to the hospital for alcoholic hepatitis with jaundice. Patient states last drink was 4 days ago. Patient denies any dysuria, hematuria, flank pain, fever, chills, rectal bleeding, vomiting blood. Related Data Home Medications Medication Instructions Recorded Confirmed cyanocobalamin (vitamin B-12) 1,000 mcg PO DAILY 02/29/20 02/29/20 duloxetine 30 mg PO BID 02/29/20 02/29/20 gabapentin 900 mg PO TID 02/29/20 02/29/20 hydrochlorothiazide 25 mg PO DAILY 02/29/20 02/29/20 levetiracetam [Keppra] 1,500 mg PO BID 02/29/20 02/29/20 multivitamin 1 tab PO DAILY 02/29/20 02/29/20 pantoprazole [Protonix] 20 mg PO DAILY 02/29/20 02/29/20 Previous Rx's Medication Instructions Recorded lactulose 20 g PO DAILY #1200 ml 03/08/20 potassium chloride [Klor-Con 10] 10 meq PO DAILY #20 tab 03/08/20 tramadol 50 mg PO Q6H PRN #12 tab 03/11/20 Allergies Allergy/AdvReac Type Severity Reaction Status Date / Time iron dextran complex Allergy Severe ANAPHYLAXIS Verified 02/29/20 10:57 [IRON DEXTRAN COMPLEX] Sulfa (Sulfonamide Allergy Intermediate RASH/LIPS Verified 02/29/20 10:57 Antibiotics) SWELL [SULFA (SULFONAMIDE ANTIBIOTICS)] bactrim Allergy Unknown Rash Uncoded 02/29/20 10:31 iron dextran Allergy Unknown Anaphylaxis Uncoded 02/29/20 10:31 Review of Systems Review of Systems skin is jaundice Yes all other systems are reviewed and are negative Constitutional: Reports no additional constitutional complaints Comments: jaundice Reports system reviewed and no additional complaints, except as documented Cardiovascular: Reports as per HPI and Reports no additional cardiovascular complaints Respiratory: Reports as per HPI, Reports no additional respiratory complaints and Reports no additional respiratory complaints Gastrointestinal: Reports abdominal pain, Denies belching, Denies melena, Denies bloating, Denies hematochezia, Denies change in bowel habits, Denies tenesmus, Denies change in stool character, Denies coffee ground emesis, Denies consti pation, Denies GI cramping, Denies early satiety and Denies dyspepsia Genitourinary: Denies dysmenorrhea, Denies dysuria, Denies pelvic pain, Denies urinary incontinence, Denies urinary hesitancy, Denies urinary urgency and Denies vaginal discharge Musculoskeletal: Reports no additional musculoskeletal complaints Reports system reviewed and no additional complaints, except as documented Psychiatric: Reports no additional psychiatric complaints Physical Exam Vital Signs: Vital Signs: Vital Signs Temp Pulse Resp BP Pulse Ox 03/11/20 16:00 98.2 F 100 16 110/62 98 03/11/20 13:39 98.3 F 105 H 16 114/61 100 03/11/20 13:31 98.3 F 105 H 16 114/61 100 Body Mass Index 33.5 Const: General: cooperative, healthy appearing and comfortable Orientation/consciousness: oriented to person, oriented to place, oriented to time and patient oriented x3 HENMT: Head: Yes normal to inspection Eyes: General: appearance normal, both eyes and all related structures Neck: Neck: Yes normal visual inspection, Yes full ROM and Yes no lympha denopathy Chest: Chest palpation & inspection: normal inspection of the chest Resp: Effort & Inspection: normal respiratory effort, able to speak in complete sentences, normal respiratory pattern, no audible wheezes, no cough, no grunting, not labored, no nasal flaring and no paradoxical thoraco-abdom movements Cardio: Jugular venous distension: no JVD Rate: regular rate Heart sounds: S1 normal heart sound present and S2 normal heart sound present GI: Inspection: No abdominal wall ecchymosis, No Abdominal wall edema, No distended and No Kehr's sign positive Palpation (GI): not firm, Tenderness to palpation present (GI) (mild tenderness) in the epigastrum and in the RUQ; Andujar's sign negative, no guarding and not rigid : General: No CVA tenderness and Yes no CVA tenderness Back/Spine/Pelvis: Back: no CVA tenderness, No CVA tenderness and back tenderness Skin: Other: Positive for generalized jaundice. Neuro: General: oriented to person, oriented to place, oriented to time, patient oriented x3 and gait normal Extrem: General: Yes normal to inspection and Yes full ROM Psych: Appearance: grossly normal and well kempt Course Course Course Narrative: Spoke with Dr. Hairston of surgery [facility] recommends patient to have MRCP and repeat labs. Reevaluation(s) Reevaluation #1: patient labs are at baseline. Patient presently not in any distress. Awaiting results of MRCP. Time: 15:52 Reevaluation #2: MRCP came back negative for cholecystitis. Spoke with surgeon Dr. Angel who agrees patient could be discharged and follow-up as outpatient. Patient informed of this and told she has also follow-up with surgeon and fashion designer due to her history of alcohol hepatitis. Patient is safe discharge. Time: 17:16 MDM - Abdominal Pain MDM Narrative Medical decision making narrative: gallstones, but negative for cholecystitis. Labs are at baseline. Patient will have follow-up with surgery and her fashion designer. Lab Data Result diagrams: 03/11/20 14:13 03/11/20 14:13 Labs: Lab Results 03/11/20 03/11/20 03/11/20 Range/Units 14:13 14:13 14:13 WBC 10.2 (4.8-10.8) X10*3/uL RBC 2.76 L (4.20-5.50) X10*6/uL Hgb 9.4 L (12.0-16.0) g/dl Hct 29.4 L (37-47) % MCV 106.5 H (80-98) fL MCH 34.1 H (27.0-33.0) pg MCHC 32.0 (31.0-35.0) g/dl RDW 15.9 (11.0-16.0) % Plt Count 250 (160-400) X10*3/uL MPV 11.0 (9.4-12.3) fL Immature Gran % (Auto) 0.8 H (0.0-0.4) % Neut % (Auto) 79.6 H (45-73) % Lymph % (Auto) 13.3 L (20-40) % [place] % (Auto) 6.0 (2-11) % Eos % (Auto) 0.0 (0-4) % Baso % (Auto) 0.3 (0-2) % Lymph # (Auto) 1.4 (1.2-4.9) X10*3/uL [place] # (Auto) 0.6 (0.1-1.2) X10*3/uL Eos # (Auto) 0.0 (0.0-0.4) X10*3/uL Baso # (Auto) 0.0 (0.0-0.2) X10*3/uL Abs Immat Gran (auto) 0.08 H (0.00-0.03) X10*3/uL Absolute Neuts (auto) 8.1 (2.0-8.3) X10*3/uL Absolute Nucleated RBC 0.000 (0.0-0.012) X10*3/uL Nucleated RBC % (auto) 0.0 (0.0-0.2) /100WBC PT 17.8 H (10.8-13.0) SEC INR 1.5 H (0.9-1.1) APTT 35.0 (24.1-38.0) SEC Sodium 132 L (135-145) mmol/L Potassium 3.3 (3.3-5.1) mmol/l Chloride 93 L (96-108) mmol/L Carbon Dioxide 31 H (22-29) mmol/L Anion Gap 11 L (12-20) BUN 3 L (9-16) mg/dL Creatinine 0.42 L (0.5-1.4) mg/dL Estim Creat Clear Calc 221.5 Estimated GFR > 60 Random Glucose 81 (60-115) mg/dL Calcium 7.7 L (8.4-10.2) mg/dL Total Bilirubin 16.8 H (0.0-1.0) mg/dL Direct Bilirubin 13.0 H (0.0-0.5) mg/dL AST 204 H (5-31) U/L ALT 34 H (0-31) U/L Alkaline Phosphatase 260 H (39-117) U/L Total Protein 4.9 L (6.5-8.0) g/dL Albumin 2.6 L (3.5-5.0) g/dL Lipase 6 L (8-78) U/L Beta HCG, Quant < 2 mIU/mL Blood Type Antibody Screen 03/11/20 Range/Units 14:22 WBC (4.8-10.8) X10*3/uL RBC (4.20-5.50) X10*6/uL Hgb (12.0-16.0) g/dl Hct (37-47) % MCV (80-98) fL MCH (27.0-33.0) pg MCHC (31.0-35.0) g/dl RDW (11.0-16.0) % Plt Count (160-400) X10*3/uL MPV (9.4-12.3) fL Immature Gran % (Auto) (0.0-0.4) % Neut % (Auto) (45-73) % Lymph % (Auto) (20-40) % [place] % (Auto) (2-11) % Eos % (Auto) (0-4) % Baso % (Auto) (0-2) % Lymph # (Auto) (1.2-4.9) X10*3/uL [place] # (Auto) (0.1-1.2) X10*3/uL Eos # (Auto) (0.0-0.4) X10*3/uL Baso # (Auto) (0.0-0.2) X10*3/uL Abs Immat Gran (auto) (0.00-0.03) X10*3/uL Absolute Neuts (auto) (2.0-8.3) X10*3/uL Absolute Nucleated RBC (0.0-0.012) X10*3/uL Nucleated RBC % (auto) (0.0-0.2) /100WBC PT (10.8-13.0) SEC INR (0.9-1.1) APTT (24.1-38.0) SEC Sodium (135-145) mmol/L Potassium (3.3-5.1) mmol/l Chloride (96-108) mmol/L Carbon Dioxide (22-29) mmol/L Anion Gap (12-20) BUN (9-16) mg/dL Creatinine (0.5-1.4) mg/dL Estim Creat Clear Calc Estimated GFR Random Glucose (60-115) mg/dL Calcium (8.4-10.2) mg/dL Total Bilirubin (0.0-1.0) mg/dL Direct Bilirubin (0.0-0.5) mg/dL AST (5-31) U/L ALT (0-31) U/L Alkaline Phosphatase (39-117) U/L Total Protein (6.5-8.0) g/dL Albumin (3.5-5.0) g/dL Lipase (8-78) U/L Beta HCG, Quant mIU/mL Blood Type B Positive Antibody Screen NEGATIVE Discharge Plan Discharge Clinical Impression: Gallstones Patient Disposition: Home, Self-Care Instructions: Biliary Colic (ED), Gallstones (ED) Prescriptions: New tramadol 50 mg tablet 50 mg PO Q6H PRN (Reason: pain) Qty: 12 RF: 0 No Action multivitamin Tablet 1 tab PO DAILY RF: 0 cyanocobalamin (vitamin B-12) 1,000 mcg Tablet 1,000 mcg PO DAILY RF: 0 pantoprazole [Protonix] 20 mg Tablet,Delayed Release (Dr/Ec) 20 mg PO DAILY RF: 0 hydrochlorothiazide 25 mg Tablet 25 mg PO DAILY RF: 0 levetiracetam [Keppra] 100 mg/mL Solution 1,500 mg PO BID RF: 0 duloxetine 30 mg Capsule,Delayed Release(Dr/Ec) 30 mg PO BID RF: 0 gabapentin 300 mg Tablet 900 mg PO TID RF: 0 lactulose 20 gram/30 mL solution 20 g PO DAILY Qty: 1200 RF: 0 potassium chloride [Klor-Con 10] 10 mEq tablet extended release 10 meq PO DAILY Qty: 20 RF: 0 Referrals: Crispin Pritchett MD [Physician] - 2 days ( jaundice. Alcohol hepatitis. Positive for gallstones. MRCP negative for cholecystitis) Jorge Angel MD [Physician] - 2 days ( gallstones. MRCP negative for cholecystitis) Interventions: ED Discharge Assessment Last Done: 03/11/20 17:34 Discharge Date/Time: 03/11/20 17:34 Print Language: [place] [facility] Past Medical History Medical History Alcoholic steatohepatitis Superficial thrombophlebitis Surgical History Gastric bypass status for obesity History of adenoidectomy Hx of tonsillectomy Previous back surgery Social History Social History Alcohol intake: former Smoking Status: Current every day smoker Use of substances other than those prescribed or required for medical reasons: No Advance Directives: No Advance Directives Information Provided: No service: No Current occupational status: unemployed
[2020-03-11 14:18] LABS: MANUAL DIFF FLAG NO
[2020-03-11 14:21] LABS: Basophils Percent Auto 0.3 % (0-2); Hematocrit 29.4 % (37-47); Hemoglobin 9.4 g/dl (12.0-16.0); Imm Gran Abs Auto 0.08 X10*3/uL (0.00-0.03); Imm Gran Pct Auto 0.8 % (0.0-0.4); Lymphocytes Absolute Auto 1.4 X10*3/uL (1.2-4.9); Lymphocytes Percent Auto 13.3 % (20-40); Mean Corpuscular Hemoglobin 34.1 pg (27.0-33.0); Mean Corpuscular Volume 106.5 fL (80-98); Monocytes Absolute Auto 0.6 X10*3/uL (0.1-1.2); Neutrophils Absolute Auto 8.1 X10*3/uL (2.0-8.3); Neutrophils Percent Auto 79.6 % (45-73); Platelet Count 250 X10*3/uL (160-400); Red Blood Count 2.76 X10*6/uL (4.20-5.50); Red Cell Distribution Width 15.9 % (11.0-16.0); White Blood Count 10.2 X10*3/uL (4.8-10.8)
[2020-03-11] MEDS: 0.9 % Sodium Chloride 1,000 ML 999 ML IVCONT (14:41)
[2020-03-11 14:46] LABS: INTERNATIONAL NORM RATIO 1.5 (0.9-1.1); Prothrombin Time 17.8 SEC (10.8-13.0)
[2020-03-11 14:52] LABS: Alanine Aminotransferase 34 U/L (0-31); Albumin Level 2.6 g/dL (3.5-5.0); Alkaline Phosphatase 260 U/L (39-117); Anion Gap 11 (12-20); Aspartate Amino Transferase 204 U/L (5-31); Bilirubin Total 16.8 mg/dL (0.0-1.0); Blood Urea Nitrogen 3 mg/dL (9-16); Calcium 7.7 mg/dL (8.4-10.2); Carbon Dioxide 31 mmol/L (22-29); Chloride 93 mmol/L (96-108); Creatinine Clr Calc Pharmacy 221.5; Estimated Glomerular Filt Rate > 60; Glucose Random 81 mg/dL (60-115); Lipase 6 U/L (8-78); Potassium 3.3 mmol/l (3.3-5.1); Sodium 132 mmol/L (135-145); Total Protein 4.9 g/dL (6.5-8.0)
[2020-03-11 14:57] LABS: HCG Quantitative < 2 mIU/mL
[2020-03-11 16:00] VITALS: BP 110/62; PULSE 100; RESP 16; TEMP 36.8; O2SAT 98
== END 2020-03-11 17:34 | disposition home or self-care (01) ==
PROVIDERS: Physician Assistant; Emergency Provider Emergency Medicine; PCP Nurse Practitioner Family
DX: K80.80 Other cholelithiasis without obstruction (principal); R17 Unspecified jaundice; F17.200 Nicotine dependence, unspecified, uncomplicated; Z79.899 Other long term (current) drug therapy; Z98.84 Bariatric surgery status
CPT/HCPCS: 36415; 74181; 80053; 80076; 83690; 84702; 85025; 85610; 85730; 86850; 86900; 86901; 96360; 99284

== ENCOUNTER 2020-03-15 08:43 | Inpatient (IN) | payer MEDICAID, SELFPAY ==
[2020-03-15] VITALS (7 sets, daily range): BP systolic 100–118; BP diastolic 67–79; PULSE 87–99; RESP 14–20; TEMP 36.5–36.8; O2SAT 95–99; BMI 35.4
--- NOTE | 2020-03-15 09:47 | ED.RECABL ---
HPI - Recheck/Abnormal Lab/Rx General Chief Complaint: Recheck/Abnormal Lab/Rx Stated Complaint: ABNORMAL LAB Time Seen by Provider: 03/15/20 09:39 Source: patient Mode of arrival: ambulatory Limitations: no limitations History of Present Illness HPI narrative: patient tells me she is here today due to low potassium. She tells me she had labs drawn yesterday and was told her potassium was 2.5 this morning and was sent into the ER for treatment. Of note, the patient has a past medical history of alcohol abuse, alcoholic hepatitis, PCOS, chronic back pain, Raynaud's disease, seizure disorder. Of note she was admitted this month for alcoholic hepatitis and is currently on lactulose 30 mg b.i.d. and was on hydrochlorothiazide until yesterday when they switched her to Aldactone. The patient was also seen on March 11 for more abdominal pain and concern for acute cholecystitis. She had an abdominal MRI which was negative for acute cholecystitis and was seen by Dr. Hairston with plan to follow up outpatient with GI and surgery. Patient tells me she has had continued abdominal pain but is not worse than normal. She denies any vomiting or diarrhea. She tells me she has quit alcohol her last drink was 14 days ago. No substance use. MD complaint: abnormal lab Initial visit (ago): day(s) Returns today for: called because of abnormal lab/test Description of abnormal result: potassium 2.5 Symptoms since prior visit: no new symptoms Associated symptoms: none Related Data Home Medications Medication Instructions Recorded Confirmed cyanocobalamin (vitamin B-12) 1,000 mcg PO DAILY 02/29/20 02/29/20 duloxetine 30 mg PO BID 02/29/20 02/29/20 gabapentin 900 mg PO TID 02/29/20 02/29/20 hydrochlorothiazide 25 mg PO DAILY 02/29/20 02/29/20 levetiracetam [Keppra] 1,500 mg PO BID 02/29/20 02/29/20 multivitamin 1 tab PO DAILY 02/29/20 02/29/20 pantoprazole [Protonix] 20 mg PO DAILY 02/29/20 02/29/20 Previous Rx's Medication Instructions Recorded lactulose 20 g PO DAILY #1200 ml 03/08/20 potassium chloride [Klor-Con 10] 10 meq PO DAILY #20 tab 03/08/20 tramadol 50 mg PO Q6H PRN #12 tab 03/11/20 Allergies Allergy/AdvReac Type Severity Reaction Status Date / Time iron dextran complex Allergy Severe ANAPHYLAXIS Verified 02/29/20 10:57 [IRON DEXTRAN COMPLEX] Sulfa (Sulfonamide Allergy Intermediate RASH/LIPS Verified 02/29/20 10:57 Antibiotics) SWELL [SULFA (SULFONAMIDE ANTIBIOTICS)] bactrim Allergy Unknown Rash Uncoded 02/29/20 10:31 iron dextran Allergy Unknown Anaphylaxis Uncoded 02/29/20 10:31 Review of Systems Review of Systems: Yes all other systems are reviewed and are negative Constitutional: Constitutional: Reports no additional constitutional complaints, Denies body ache(s), Denies chills, Denies fever(s), Denies headache(s) and Denies weakness Eyes: Eyes: Reports no additional eye complaints and Denies change in vision ENT: Reports system reviewed and no additional complaints, except as documented, Denies dizziness, Denies headache(s), Denies nasal congestion, Denies nasal discharge and Denies neck pain Cardiovascular: Cardiovascular: Reports no additional cardiovascular complaints, Denies chest pain, Denies leg edema and Denies dyspnea Respiratory: Respiratory: Reports no additional respiratory complaints, Denies cough and Denies dyspnea Gastrointestinal: Gastrointestinal: Reports no additional gastrointestinal complaints, Reports abdominal pain (chronic, abdominal swelling (chronic)), Denies diarrhea, Denies nausea and Denies vomiting Genitourinary: Genitourinary: Reports no additional female genitourinary complaints and Denies urinary incontinence Musculoskeletal: Musculoskeletal: Reports no additional musculoskeletal complaints, Denies back pain, Denies arthralgias, Denies joint swelling, Denies neck pain, Denies numbness and Denies tingling Integumentary/Breasts: Skin/Breast: Reports system reviewed and no additional complaints, except as docu and Denies rash Neurologic: Reports system reviewed and no additional complaints, except as documented, Denies Abnormal speech present, Denies dizziness, Denies headache(s), Denies numbness, Denies tingling and Denies weakness PMFSH Past Medical History Attestation statement: The following information was validated with the patient. Source: nursing notes reviewed Medical History Acute on chronic blood loss anemia Alcoholic steatohepatitis Superficial thrombophlebitis Surgical History Gastric bypass status for obesity History of adenoidectomy Hx of tonsillectomy Previous back surgery Social History Social History Alcohol intake: former Smoking Status: Current some day smoker Use of substances other than those prescribed or required for medical reasons: No Advance Directives: No Advance Directives Information Provided: No service: No Current occupational status: unemployed Physical Exam Vital Signs: Vital Signs: Vital Signs Temp Pulse Resp BP Pulse Ox 03/15/20 13:38 98.2 F 96 18 108/67 99 03/15/20 11:54 98.0 F 99 20 118/73 03/15/20 10:28 92 14 106/67 03/15/20 09:33 97.9 F 96 16 112/72 99 Body Mass Index 35.4 Const: General: cooperative, healthy appearing, comfortable and no acute distress Orientation/consciousness: patient oriented x3 Limitations: no limitations HENMT: Head: Yes normal to inspection Ears: hearing grossly normal bilaterally General nose exam: Normal external nose present Face and sinus: Yes normal facial exam Mouth: Normal oral and palatal mucosa present Throat: Yes posterior oropharynx normal Eyes: Other: scleral icterus General: appearance normal, both eyes and all related structures Pupils: Equal, round and reactive pupils present Neck: Neck: Yes normal visual inspection Chest: Chest palpation & inspection: normal inspection of the chest Resp: Effort & Inspection: normal respiratory effort Auscultation: clear to auscultation bilaterally Cardio: Rate: regular rate Rhythm: regular rhythm Peripheral pulses: Peripheral pulses 2+ throughout GI: Other: Abdomen is distended Inspection: Yes normal to inspection Palpation (GI): Soft to palpation and Tenderness to palpation present (GI) (mild diffusely, no focal pain) Auscultation: normal bowel sounds Back/Spine/Pelvis: Thoracic/Lumbar Spine: thoracic and lumbar spine normal to inspection Skin: Other: +jaundice General skin exam: no rashes or lesions noted Neuro: General: patient oriented x3, no focal motor deficits and normal sensation to monofilament Cranial nerves: Yes Equal, round and reactive pupils present Cognition (Neuro): normal cognition Speech: No Abnormal speech present Gait exam (Neuro): Normal gait present Motor exam (neuro): 5/5 motor strength present throughout Extrem: General: Yes normal to inspection Course Course Course Narrative: Patient here with reports of hypokalemia drawn yesterday outpatient. Will plan for repeat labs today. 1150- labs show hyponatremia 123 which is new from previous. Potassium 3.2. Added on serum osmolality. Added on urine osmolality, lytes. Will discuss with nephrology. Patient will need admission. LFTS unchanged from previous. 1300-Discussed with Dr Louis Nephrology. Hyponatremia likely secondary to hydrochlorothiazide use. He recommended restricting fluids to 1 L per day for the next 24 hours. Recommended stopping hydrochlorothiazide. Replacing potassium orally and checking sodium levels every 4 hours. Will discuss with hospitalist for admission. 1315-Discussed with Maria D RODRIGUEZ who accepted admission. MDM - Recheck/Abnormal Lab/Rx MDM Narrative Medical decision making narrative: Pt here with reports of hypokalemia-plan for recheck. If accurate likely from diuretic use, lactulose use. Medical Records Attestation: I reviewed the patient's medical records. Lab Data Attestation: I reviewed the patient's lab results. Result diagrams: 03/15/20 10:26 03/15/20 10:26 Labs: Lab Results 03/15/20 03/15/20 03/15/20 Range/Units 10:26 10:26 10:26 WBC 12.3 H (4.8-10.8) X10*3/uL RBC 3.03 L (4.20-5.50) X10*6/uL Hgb 10.2 L (12.0-16.0) g/dl Hct 30.9 L (37-47) % MCV 102.0 H (80-98) fL MCH 33.7 H (27.0-33.0) pg MCHC 33.0 (31.0-35.0) g/dl RDW 14.8 (11.0-16.0) % Plt Count 213 (160-400) X10*3/uL MPV 11.2 (9.4-12.3) fL Immature Gran % (Auto) 1.0 H (0.0-0.4) % Neut % (Auto) 83.9 H (45-73) % Lymph % (Auto) 9.5 L (20-40) % [place] % (Auto) 5.5 (2-11) % Eos % (Auto) 0.0 (0-4) % Baso % (Auto) 0.1 (0-2) % Lymph # (Auto) 1.2 (1.2-4.9) X10*3/uL [place] # (Auto) 0.7 (0.1-1.2) X10*3/uL Eos # (Auto) 0.0 (0.0-0.4) X10*3/uL Baso # (Auto) 0.0 (0.0-0.2) X10*3/uL Abs Immat Gran (auto) 0.12 H (0.00-0.03) X10*3/uL Absolute Neuts (auto) 10.4 H (2.0-8.3) X10*3/uL Absolute Nucleated RBC 0.000 (0.0-0.012) X10*3/uL Nucleated RBC % (auto) 0.0 (0.0-0.2) /100WBC PT 18.4 H (10.8-13.0) SEC INR 1.5 H (0.9-1.1) Sodium (135-145) mmol/L Potassium (3.3-5.1) mmol/l Chloride (96-108) mmol/L Carbon Dioxide (22-29) mmol/L Anion Gap (12-20) BUN (9-16) mg/dL Creatinine (0.5-1.4) mg/dL Estim Creat Clear Calc Estimated GFR Random Glucose (60-115) mg/dL Osmolality (281-305) mosm/kg Calcium (8.4-10.2) mg/dL Magnesium (1.6-2.6) mg/dL Total Bilirubin (0.0-1.0) mg/dL Direct Bilirubin (0.0-0.5) mg/dL AST (5-31) U/L ALT (0-31) U/L Alkaline Phosphatase (39-117) U/L Ammonia 78 H (13-55) umol/L Total Protein (6.5-8.0) g/dL Albumin (3.5-5.0) g/dL Urine Color Urine Appearance Urine pH (5.0-8.0) Ur Specific [place] (1.005-1.025) Urine Protein (NEG-TRACE) MG/DL Urine Glucose (UA) (NEG) MG/DL Urine Ketones (NEG) MG/DL Urine Blood (NEG) Urine Nitrite (NEG) Ur Leukocyte Esterase (NEG) Urine Osmolality (373-1093) mosm/kg Ur Random Sodium mmol/L Ur Random Potassium mmol/l Ur Random Chloride mmol/L Urine Test (NEGATIVE) 03/15/20 03/15/20 03/15/20 Range/Units 10:26 10:59 11:09 WBC (4.8-10.8) X10*3/uL RBC (4.20-5.50) X10*6/uL Hgb (12.0-16.0) g/dl Hct (37-47) % MCV (80-98) fL MCH (27.0-33.0) pg MCHC (31.0-35.0) g/dl RDW (11.0-16.0) % Plt Count (160-400) X10*3/uL MPV (9.4-12.3) fL Immature Gran % (Auto) (0.0-0.4) % Neut % (Auto) (45-73) % Lymph % (Auto) (20-40) % [place] % (Auto) (2-11) % Eos % (Auto) (0-4) % Baso % (Auto) (0-2) % Lymph # (Auto) (1.2-4.9) X10*3/uL [place] # (Auto) (0.1-1.2) X10*3/uL Eos # (Auto) (0.0-0.4) X10*3/uL Baso # (Auto) (0.0-0.2) X10*3/uL Abs Immat Gran (auto) (0.00-0.03) X10*3/uL Absolute Neuts (auto) (2.0-8.3) X10*3/uL Absolute Nucleated RBC (0.0-0.012) X10*3/uL Nucleated RBC % (auto) (0.0-0.2) /100WBC PT (10.8-13.0) SEC INR (0.9-1.1) Sodium 123 L (135-145) mmol/L Potassium 3.2 L (3.3-5.1) mmol/l Chloride 85 L (96-108) mmol/L Carbon Dioxide 30 H (22-29) mmol/L Anion Gap 11 L (12-20) BUN 3 L (9-16) mg/dL Creatinine 0.48 L (0.5-1.4) mg/dL Estim Creat Clear Calc 199.4 Estimated GFR > 60 Random Glucose 97 (60-115) mg/dL Osmolality (281-305) mosm/kg Calcium 7.9 L (8.4-10.2) mg/dL Magnesium 1.8 (1.6-2.6) mg/dL Total Bilirubin 18.0 H (0.0-1.0) mg/dL Direct Bilirubin 14.0 H (0.0-0.5) mg/dL AST 366 H (5-31) U/L ALT 50 H (0-31) U/L Alkaline Phosphatase 310 H (39-117) U/L Ammonia (13-55) umol/L Total Protein 5.0 L (6.5-8.0) g/dL Albumin 2.7 L (3.5-5.0) g/dL Urine Color YELLOW Urine Appearance HAZY Urine pH 7.0 (5.0-8.0) Ur Specific [place] <= 1.005 (1.005-1.025) Urine Protein NEG (NEG-TRACE) MG/DL Urine Glucose (UA) NEG (NEG) MG/DL Urine Ketones NEG (NEG) MG/DL Urine Blood NEG (NEG) Urine Nitrite NEG (NEG) Ur Leukocyte Esterase NEG (NEG) Urine Osmolality (373-1093) mosm/kg Ur Random Sodium mmol/L Ur Random Potassium mmol/l Ur Random Chloride mmol/L Urine Test NEGATIVE (NEGATIVE) 03/15/20 03/15/20 03/15/20 Range/Units 11:09 11:09 11:35 WBC (4.8-10.8) X10*3/uL RBC (4.20-5.50) X10*6/uL Hgb (12.0-16.0) g/dl Hct (37-47) % MCV (80-98) fL MCH (27.0-33.0) pg MCHC (31.0-35.0) g/dl RDW (11.0-16.0) % Plt Count (160-400) X10*3/uL MPV (9.4-12.3) fL Immature Gran % (Auto) (0.0-0.4) % Neut % (Auto) (45-73) % Lymph % (Auto) (20-40) % [place] % (Auto) (2-11) % Eos % (Auto) (0-4) % Baso % (Auto) (0-2) % Lymph # (Auto) (1.2-4.9) X10*3/uL [place] # (Auto) (0.1-1.2) X10*3/uL Eos # (Auto) (0.0-0.4) X10*3/uL Baso # (Auto) (0.0-0.2) X10*3/uL Abs Immat Gran (auto) (0.00-0.03) X10*3/uL Absolute Neuts (auto) (2.0-8.3) X10*3/uL Absolute Nucleated RBC (0.0-0.012) X10*3/uL Nucleated RBC % (auto) (0.0-0.2) /100WBC PT (10.8-13.0) SEC INR (0.9-1.1) Sodium (135-145) mmol/L Potassium (3.3-5.1) mmol/l Chloride (96-108) mmol/L Carbon Dioxide (22-29) mmol/L Anion Gap (12-20) BUN (9-16) mg/dL Creatinine (0.5-1.4) mg/dL Estim Creat Clear Calc Estimated GFR Random Glucose (60-115) mg/dL Osmolality 249 L (281-305) mosm/kg Calcium (8.4-10.2) mg/dL Magnesium (1.6-2.6) mg/dL Total Bilirubin (0.0-1.0) mg/dL Direct Bilirubin (0.0-0.5) mg/dL AST (5-31) U/L ALT (0-31) U/L Alkaline Phosphatase (39-117) U/L Ammonia (13-55) umol/L Total Protein (6.5-8.0) g/dL Albumin (3.5-5.0) g/dL Urine Color Urine Appearance Urine pH (5.0-8.0) Ur Specific [place] (1.005-1.025) Urine Protein (NEG-TRACE) MG/DL Urine Glucose (UA) (NEG) MG/DL Urine Ketones (NEG) MG/DL Urine Blood (NEG) Urine Nitrite (NEG) Ur Leukocyte Esterase (NEG) Urine Osmolality 66 L (373-1093) mosm/kg Ur Random Sodium < 20.0 mmol/L Ur Random Potassium 6.4 mmol/l Ur Random Chloride < 20.0 mmol/L Urine Test (NEGATIVE) Discharge Plan Discharge Clinical Impression: Acute hyponatremia, Acute alcoholic hepatitis Patient Disposition: Admitted As Inpatient
[2020-03-15 10:38] LABS: MANUAL DIFF FLAG NO
[2020-03-15 10:45] LABS: INTERNATIONAL NORM RATIO 1.5 (0.9-1.1); Prothrombin Time 18.4 SEC (10.8-13.0)
[2020-03-15 10:47] LABS: Basophils Percent Auto 0.1 % (0-2); Hematocrit 30.9 % (37-47); Hemoglobin 10.2 g/dl (12.0-16.0); Imm Gran Abs Auto 0.12 X10*3/uL (0.00-0.03); Lymphocytes Absolute Auto 1.2 X10*3/uL (1.2-4.9); Lymphocytes Percent Auto 9.5 % (20-40); Mean Corpuscular Hemoglobin 33.7 pg (27.0-33.0); Mean Platelet Volume 11.2 fL (9.4-12.3); Monocytes Absolute Auto 0.7 X10*3/uL (0.1-1.2); Monocytes Percent Auto 5.5 % (2-11); Neutrophils Absolute Auto 10.4 X10*3/uL (2.0-8.3); Neutrophils Percent Auto 83.9 % (45-73); Platelet Count 213 X10*3/uL (160-400); Red Blood Count 3.03 X10*6/uL (4.20-5.50); Red Cell Distribution Width 14.8 % (11.0-16.0); White Blood Count 12.3 X10*3/uL (4.8-10.8)
[2020-03-15 10:53] LABS: Ammonia 78 umol/L (13-55)
[2020-03-15 11:08] LABS: Glucose Urine UA NEG (NEG); Leukocyte Esterase Urine NEG (NEG); Nitrite Urine NEG (NEG); Specific Gravity - Urine <= 1.005 (1.005-1.025); Urine Blood NEG (NEG); Urine Ketones NEG (NEG); Urine Protein NEG (NEG-TRACE)
[2020-03-15 11:09] LABS: Appearance Urine HAZY; Color Urine YELLOW
[2020-03-15 11:35] LABS: Alanine Aminotransferase 50 U/L (0-31); Albumin Level 2.7 g/dL (3.5-5.0); Alkaline Phosphatase 310 U/L (39-117); Anion Gap 11 (12-20); Aspartate Amino Transferase 366 U/L (5-31); Blood Urea Nitrogen 3 mg/dL (9-16); Calcium 7.9 mg/dL (8.4-10.2); Carbon Dioxide 30 mmol/L (22-29); Chloride 85 mmol/L (96-108); Creatinine Clr Calc Pharmacy 199.4; Estimated Glomerular Filt Rate > 60; Glucose Random 97 mg/dL (60-115); Magnesium 1.8 mg/dL (1.6-2.6); Potassium 3.2 mmol/l (3.3-5.1); Sodium 123 mmol/L (135-145)
--- NOTE | 2020-03-15 11:56 | PC.NURSE ---
patient a&ox3, ambulated to bathroom, monitoring engineer nsr 90s, vss, pt c/o 11/07 abd pain, pt presently watching tv awaiting for lab results, will continue to monitor.
[2020-03-15 12:04] LABS: UPreg QC Valid YES; Urine Pregnancy NEGATIVE (NEGATIVE)
[2020-03-15 12:26] LABS: Potassium Urine Random 6.4 mmol/l; Sodium Urine Random < 20.0 mmol/L
[2020-03-15 12:42] LABS: Osmolality Urine 66 mosm/kg (373-1093)
[2020-03-15 12:42] LABS: Osmolality, Serum 249 mosm/kg (281-305)
--- NOTE | 2020-03-15 13:26 | PM.IMHP ---
History of Present Illness Date of Service: 03/15/20 <JENNIFER Holden - Last Filed: 03/15/20 14:17> Chief Complaint: abnormal labs <JENNIFER Holden - Last Filed: 03/15/20 14:17> this is a 35-year-old female with a history of recent admission for alcoholic hepatitis who returns to the emergency department due to abnormal labs. She had repeat labs drawn as outpatient which revealed hyponatremia. For this reason she was sent to the emergency department for further evaluation. She was noted to have a sodium level of 123. She was evaluated by nephrology in the emergency department who recommended fluid restriction and closely monitoring sodium levels. Her LFTs had increased slightly. she reported mild right lower quadrant abdominal pain with no associated vomiting. She has diarrhea secondary to lactulose. PMH: Alcohol dependence with alcoholic fatty liver disease Epilepsy Raynaud's PCOS Iron deficiency new Chronic back pain Right cephalic superficial thrombophlebitis that was provoked status post 1 month of Xarelto <JENNIFER Holden - Last Filed: 03/15/20 14:17> Review of Systems Constitutional: Constitutional: Denies headache(s) and Denies weakness <JENNIFER Holden - Last Filed: 03/15/20 14:17> ENT: Denies dizziness and Denies headache(s) <JENNIFER Holden - Last Filed: 03/15/20 14:17> Musculoskeletal: Musculoskeletal: Denies numbness and Denies tingling <JENNIFER Holden - Last Filed: 03/15/20 14:17> Neurologic: Reports system reviewed and no additional complaints, except as documented, Denies Abnormal speech present, Denies dizziness, Denies headache(s), Denies numbness, Denies tingling and Denies weakness <JENNIFER Holden - Last Filed: 03/15/20 14:17> [facility] Medical History: Medical History Acute on chronic blood loss anemia Alcoholic steatohepatitis Superficial thrombophlebitis <JENNIFER Holden Last Filed: 03/15/20 14:17> Surgical History: Surgical History Gastric bypass status for obesity History of adenoidectomy Hx of tonsillectomy Previous back surgery <JENNIFER Holden - Last Filed: 03/15/20 14:17> Social History: Social History Household Members: Significant Other and Family Housing: Apartment Do you presently have visiting nurse or other home services: No Alcohol intake: former Smoking Status: Current some day smoker Tobacco Type: Cigarette Packs Per Day: 1.5 Cigarettes Per Day: 30.0 Years Smoked: 20 Smoked in Last 30 Days: Yes Patient Interested in Nicotine Replacement: Yes (nicotine patch in place) Second Hand Smoke Exposure: No Use of substances other than those prescribed or required for medical reasons: No Currently Displaying Signs/Symptoms of Drug Intoxication Withdrawal: No Have you been hit, kicked, punched, or otherwise hurt by someone within the past year? If so, by whom?: No Do you feel safe in your current relationship?: Yes Is there a partner from a previous relationship who is making you feel unsafe now?: No Are you made to feel afraid or neglected: No Advance Directives: No Advance Directives Information Provided: No Advance Directives on File: No Do you have thoughts of harming others: None Do you have a plan to hurt others: No Plan Recently lost weight without trying: No service: No Current occupational status: unemployed <JENNIFER Holden - Last Filed: 03/15/20 14:17> Meds Allergies/Adverse reactions: Allergies Allergy/AdvReac Type Severity Reaction Status Date / Time iron dextran complex Allergy Severe ANAPHYLAXIS Verified 02/29/20 10:57 [IRON DEXTRAN COMPLEX] Sulfa (Sulfonamide Allergy Intermediate RASH/LIPS Verified 02/29/20 10:57 Antibiotics) SWELL [SULFA (SULFONAMIDE ANTIBIOTICS)] bactrim Allergy Unknown Rash Uncoded 02/29/20 10:31 iron dextran Allergy Unknown Anaphylaxis Uncoded 02/29/20 10:31 <JENNIFER Holden - Last Filed: 03/15/20 14:17> Home medications: Home Medications Medication Instructions Recorded Confirmed Type cyanocobalamin (vitamin B-12) 1,000 mcg PO DAILY 02/29/20 03/15/20 History duloxetine 30 mg PO BID 02/29/20 03/15/20 History gabapentin 900 mg PO TID 02/29/20 03/15/20 History hydrochlorothiazide 25 mg PO DAILY 02/29/20 03/15/20 History levetiracetam [Keppra] 1,500 mg PO BID 02/29/20 03/15/20 History multivitamin 1 tab PO DAILY 02/29/20 03/15/20 History pantoprazole [Protonix] 20 mg PO DAILY 02/29/20 03/15/20 History nicotine 1 patch TRANSDERMAL DAILY 03/15/20 03/15/20 History nicotine (polacrilex) 2 mg BUCCAL Q2H 03/15/20 03/15/20 History <JENNIFER Holden - Last Filed: 03/15/20 14:17> Physical Exam Vital Signs and Narrative: Vital Signs: Last Vital Signs Temp 98.0 F 03/15/20 11:54 Pulse 99 03/15/20 11:54 Resp 20 03/15/20 11:54 BP 118/73 03/15/20 11:54 Pulse Ox 99 03/15/20 09:33 Body Mass Index 35.4 <JENNIFER Holden - Last Filed: 03/15/20 14:17> Const: Nutritional Appearance: well nourished <JENNIFER Holden - Last Filed: 03/15/20 14:17> Orientation/consciousness: patient oriented x3 <JENNIFER Holden Last Filed: 03/15/20 14:17> HENMT: Head: Yes normocephalic and Yes atraumatic <JENNIFER Holden - Last Filed: 03/15/20 14:17> Eyes: Sclerae: scleral abnormal ( icterus) <JENNIFER Holden Last Filed: 03/15/20 14:17> Pupils: Equal, round and reactive pupils present <JENNIFER Holden - Last Filed: 03/15/20 14:17> Chest: Chest palpation & inspection: normal inspection of the chest <JENNIFER Holden Last Filed: 03/15/20 14:17> Resp: Effort & Inspection: normal respiratory effort and no respiratory distress <JENNIFER Holden - Last Filed: 03/15/20 14:17> Auscultation: clear to auscultation bilaterally <JENNIFER Holden - Last Filed: 03/15/20 14:17> Cardio: Rate: regular rate <JENNIFER Holden - Last Filed: 03/15/20 14:17> Rhythm: regular rhythm <JENNIFER Holden - Last Filed: 03/15/20 14:17> GI: Palpation (GI): Soft to palpation and nontender <JENNIFER Hodlen - Last Filed: 03/15/20 14:17> Skin: General skin exam: jaundice <JENNIFER Holden - Last Filed: 03/15/20 14:17> Neuro: General: patient oriented x3 <JENNIFER Holden - Last Filed: 03/15/20 14:17> Cranial nerves: Yes CN's II-XII intact bilaterally, Yes Equal, round and reactive pupils present and Yes Bilaterally intact EOM present <JENNIFER Holden - Last Filed: 03/15/20 14:17> Speech: No Abnormal speech present <JENNIFER Holden - Last Filed: 03/15/20 14:17> Extrem: General: Yes normal to inspection <JENNIFER Holden - Last Filed: 03/15/20 14:17> Results Labs Labs: Laboratory Tests 03/15/20 03/15/20 03/15/20 10:26 10:26 10:26 WBC 12.3 H RBC 3.03 L Hgb 10.2 L Hct 30.9 L MCV 102.0 H MCH 33.7 H MCHC 33.0 RDW 14.8 Plt Count 213 MPV 11.2 Immature Gran % (Auto) 1.0 H Neut % (Auto) 83.9 H Lymph % (Auto) 9.5 L Motley % (Auto) 5.5 Eos % (Auto) 0.0 Baso % (Auto) 0.1 Lymph # (Auto) 1.2 Motley # (Auto) 0.7 Eos # (Auto) 0.0 Baso # (Auto) 0.0 Abs Immat Gran (auto) 0.12 H Absolute Neuts (auto) 10.4 H Absolute Nucleated RBC 0.000 Nucleated RBC % (auto) 0.0 PT 18.4 H INR 1.5 H Sodium Potassium Chloride Carbon Dioxide Anion Gap BUN Creatinine Estim Creat Clear Calc Estimated GFR Random Glucose Osmolality Calcium Magnesium Total Bilirubin Direct Bilirubin AST ALT Alkaline Phosphatase Ammonia 78 H Total Protein Albumin Urine Color Urine Appearance Urine pH Ur Specific [place] Urine Protein Urine Glucose (UA) Urine Ketones Urine Blood Urine Nitrite Ur Leukocyte Esterase Urine Osmolality Ur Random Sodium Ur Random Potassium Urine Test 03/15/20 03/15/20 03/15/20 10:26 10:59 11:09 WBC RBC Hgb Hct MCV MCH MCHC RDW Plt Count MPV Immature Gran % (Auto) Neut % (Auto) Lymph % (Auto) Motley % (Auto) Eos % (Auto) Baso % (Auto) Lymph # (Auto) Motley # (Auto) Eos # (Auto) Baso # (Auto) Abs Immat Gran (auto) Absolute Neuts (auto) Absolute Nucleated RBC Nucleated RBC % (auto) PT INR Sodium 123 L Potassium 3.2 L Chloride 85 L Carbon Dioxide 30 H Anion Gap 11 L BUN 3 L Creatinine 0.48 L Estim Creat Clear Calc 199.4 Estimated GFR > 60 Random Glucose 97 Osmolality Calcium 7.9 L Magnesium 1.8 Total Bilirubin 18.0 H Direct Bilirubin 14.0 H AST 366 H ALT 50 H Alkaline Phosphatase 310 H Ammonia Total Protein 5.0 L Albumin 2.7 L Urine Color YELLOW Urine Appearance HAZY Urine pH 7.0 Ur Specific [place] <= 1.005 Urine Protein NEG Urine Glucose (UA) NEG Urine Ketones NEG Urine Blood NEG Urine Nitrite NEG Ur Leukocyte Esterase NEG Urine Osmolality Ur Random Sodium Ur Random Potassium Urine Test NEGATIVE 03/15/20 03/15/20 03/15/20 11:09 11:09 11:35 WBC RBC Hgb Hct MCV MCH MCHC RDW Plt Count MPV Immature Gran % (Auto) Neut % (Auto) Lymph % (Auto) Motley % (Auto) Eos % (Auto) Baso % (Auto) Lymph # (Auto) Motley # (Auto) Eos # (Auto) Baso # (Auto) Abs Immat Gran (auto) Absolute Neuts (auto) Absolute Nucleated RBC Nucleated RBC % (auto) PT INR Sodium Potassium Chloride Carbon Dioxide Anion Gap BUN Creatinine Estim Creat Clear Calc Estimated GFR Random Glucose Osmolality 249 L Calcium Magnesium Total Bilirubin Direct Bilirubin AST ALT Alkaline Phosphatase Ammonia Total Protein Albumin Urine Color Urine Appearance Urine pH Ur Specific [place] Urine Protein Urine Glucose (UA) Urine Ketones Urine Blood Urine Nitrite Ur Leukocyte Esterase Urine Osmolality 66 L Ur Random Sodium < 20.0 Ur Random Potassium 6.4 Urine Test <JENNIFER Holden - Last Filed: 03/15/20 14:17> Assessment and Plan (1) Acute hyponatremia: Status: Acute <JENNIFER Holden - Last Filed: 03/15/20 14:17> this is a 35-year-old female with a history of alcohol abuse, seizure disorder, recent admission for alcoholic hepatitis who was sent to the emergency department for abnormal labs found to have hyponatremia. hyponatremia nephrology consult Q 4 hour sodium fluid restriction elevated LFTs r/t alcoholic hepatitis. Vivi discriminant function 47.4. will start steroids GI consult trend LFTs alcohol dependence reports last drink 2 weeks ago. no evidence of alcohol withdrawal at this time follow CIWA scale tobacco dependence smoking cessation advised - nicotine replacement therapy seizure disorder seizure precautions - continue Keppra, gabapentin when med reconciliation has been completed <JENNIFER Holden - Last Filed: 03/15/20 14:17>
[2020-03-15] MEDS: Potassium Chloride ER 20 MEQ TAB.ER.PRT 30 MEQ PO (13:36)
--- NOTE | 2020-03-15 13:36 | PC.NURSE ---
patient a&ox3, medicated per order, vss, hospitalist in room to speak with patient, will continue to monitor
[2020-03-15 13:43] LABS: Chloride Urine Random < 20.0 mmol/L
--- NOTE | 2020-03-15 14:20 | PM.EVENT ---
Event Note Event Note: Patient seen and examined independently and was present during [place] portion of E/M service. Agree with midlevel's history, physical, assessment, and plan. 35F presented with abdominal pain recent alcoholic hepatitis with worsening LFTs DF >32 will start prednisone gi eval hyponatremia primary polydypsia, fluid resrtict, monitor nephro eval
[2020-03-15] MEDS: predniSONE 20 MG TABLET 40 MG PO (14:30)
--- NOTE | 2020-03-15 14:30 | PC.NURSE ---
patient medicated per order
--- NOTE | 2020-03-15 14:54 | PC.NURSE ---
called floor to give report, alumnae secretary is going to have the nurse call us back
--- NOTE | 2020-03-15 15:02 | PC.NURSE ---
patient a&ox2, pt denies all symptoms of etoh withdrawal, ciwa is currently negative, willl continue to monitor.
--- NOTE | 2020-03-15 15:39 | PC.NURSE ---
patient report was given, pt ready to be transported to floor
--- NOTE | 2020-03-15 16:01 | CONS_ITS ---
DATE OF SERVICE: REASON FOR CONSULTATION: I was called to see this patient to assist in the management of hyponatremia. HISTORY OF PRESENT ILLNESS: To summarize, Rachell is a 35-year-old woman with history of alcohol abuse. She has had mild hyponatremia in the past; however, she comes in because of abnormal labs and at the time of admission, she had a serum sodium of 123. Unfortunately, she was on hydrochlorothiazide at the time of admission. This has been discontinued. This consultation has been requested for management of hyponatremia. PAST MEDICAL HISTORY: Ongoing medical problems include history of alcohol dependence and alcoholic fatty liver, epilepsy, Raynaud's, PCOS, iron deficiency, chronic back pain. PAST SURGICAL HISTORY: Include gastric bypass for obesity, adenoidectomy, tonsillectomy, and previous back surgery. SOCIAL HISTORY: Alcohol intake. History of smoking. There is no history of any drug abuse documented. ALLERGIES: SHE IS ALLERGIC TO IRON DEXTRAN, SULFA, BACTRIM. MEDICATIONS: At home include hydrochlorothiazide 25 mg, Keppra, multivitamins, Protonix, gabapentin, duloxetine, cyanocobalamin. REVIEW OF SYSTEMS: She has no headache, nausea, or vomiting. She has generalized weakness. No abdominal pain, diarrhea, or constipation. She has some loose stools, but she has been on lactulose. No edema. PHYSICAL EXAMINATION: GENERAL: Rachell is a middle-aged woman, who appears comfortable. VITAL SIGNS: Blood pressure 110/70 and pulse 90 per minute. She is afebrile. HEENT: Mucosa is dry. LUNGS: Air entry equal. HEART: S1 and S2 heard. No gallop. ABDOMEN: Soft, nontender. EXTREMITIES: No edema. LABORATORY DATA: Hemoglobin 10.2, platelets 213. Ammonia 78. INR 1.5. Sodium 123, potassium 3.2, CO2 of 30, BUN 3, creatinine 0.48. Total bilirubin 18.0. Urine specific gravity less than 1.005. IMPRESSION: 35-year-old woman with alcoholic liver disease, comes in with hyponatremia and hypokalemia, both due to the use of hydrochlorothiazide. RECOMMENDATIONS: At this point would be to hold hydrochlorothiazide and replace potassium orally. She has a very dilute urine and she is able to excrete the free water. By stopping hydrochlorothiazide, serum sodium should gradually correct. We will keep her on oral free water restriction and continue to monitor her serum sodium every 2 to 4 hours. Rapid correction should be avoided. The rate of correction should be 0.5 millimole per liter per hour and not more than 10 millimoles over a 24-hour period. There is no absolute indication for 3% sodium chloride solution at this time. We will follow her along with the team. Messi Louis MD BPA/MODL / [id number]
[2020-03-15] MEDS: 0.9 % Sodium Chloride Flush 3 ML SYRINGE IVFLUSH ×2 (16:32→21:48)
[2020-03-15] MEDS: Nicotine 14 MG PATCH.TD24 TRANSDERMA (16:32)
[2020-03-15] MEDS: oxyCODONE HCl Immed Release 5 MG TABLET PO ×2 (17:03→20:47)
[2020-03-15 18:10] LABS: Anion Gap 14 (12-20); Blood Urea Nitrogen 3 mg/dL (9-16); Calcium 8.3 mg/dL (8.4-10.2); Carbon Dioxide 28 mmol/L (22-29); Chloride 88 mmol/L (96-108); Estimated Glomerular Filt Rate > 60; Glucose Random 86 mg/dL (60-115); Potassium 3.2 mmol/l (3.3-5.1); Sodium 127 mmol/L (135-145)
[2020-03-15 20:38] LABS: Anion Gap 10 (12-20); Blood Urea Nitrogen 3 mg/dL (9-16); Carbon Dioxide 30 mmol/L (22-29); Chloride 89 mmol/L (96-108); Creatinine Clr Calc Pharmacy 217.6; Estimated Glomerular Filt Rate > 60; Glucose Random 103 mg/dL (60-115); Potassium 3.1 mmol/l (3.3-5.1); Sodium 126 mmol/L (135-145)
[2020-03-15] MEDS: DULoxetine HCl 30 MG CAPSULE.DR PO (21:46)
[2020-03-15] MEDS: Gabapentin 300 MG CAPSULE 900 MG PO (21:46)
[2020-03-15] MEDS: Cyanocobalamin (Vitamin B-12) 1,000 MCG TABLET 1000 MCG PO (21:47)
[2020-03-15] MEDS: levETIRAcetam 500 MG TABLET 1500 MG PO (21:47)
--- NOTE | 2020-03-15 22:14 | P.CNGI_ITS ---
History of Present Illness Data of Consult Service Date: 03/15/20 Requesting physician: Kurtis Mason Primary Care Provider: Queta Santiago NP HPI Reason for consult: worsening labs, jaundice 35 yr old f with hx of alcohol abuse, gastric bypass, upper arm DVT, failed back syndrome, anemia who I am seeing for assessment of abn LFT and jaundice, abn lytes She was sent to the ED by PCP after labs with low sodium of 123. She had also been on thiazide diuretic and additionally mentions several episodes of diarrhea a day since being on BID dosing of lactulose but no blood or hemtemesis, melena. She also endorses lower abdominal cramping brigida in suprapubic area but denies any dysuria or urine sx. she says she has been sober for 2 weeks with no alcohol, prior to this had been drinking vodka daily for last 6 month due to falling out with daughter. jazlyn had admission with jaundice and abn lft few weeks [facility] but her DF was low and steroids not to be used. Review of Systems Constitutional: Constitutional: Denies headache(s) and Denies weakness ENT: Denies dizziness and Denies headache(s) Musculoskeletal: Musculoskeletal: Denies numbness and Denies tingling Neurologic: Reports system reviewed and no additional complaints, except as documented, Denies Abnormal speech present, Denies dizziness, Denies headache(s), Denies numbness, Denies tingling and Denies weakness PMFSH Past Medical History Medical History Acute on chronic blood loss anemia Alcoholic steatohepatitis Superficial thrombophlebitis Surgical History Surgical History Gastric bypass status for obesity History of adenoidectomy Hx of tonsillectomy Previous back surgery Social History Social History Household Members: Significant Other and Family Housing: Apartment Do you presently have visiting nurse or other home services: No Alcohol intake: former Smoking Status: Current some day smoker Tobacco Type: Cigarette Packs Per Day: 1.5 Cigarettes Per Day: 30.0 Years Smoked: 20 Smoked in Last 30 Days: Yes Patient Interested in Nicotine Replacement: Yes (nicotine patch in place) Second Hand Smoke Exposure: No Use of substances other than those prescribed or required for medical reasons: No Currently Displaying Signs/Symptoms of Drug Intoxication Withdrawal: No Have you been hit, kicked, punched, or otherwise hurt by someone within the past year? If so, by whom?: No Do you feel safe in your current relationship?: Yes Is there a partner from a previous relationship who is making you feel unsafe now?: No Are you made to feel afraid or neglected: No Advance Directives: No Advance Directives Information Provided: No Advance Directives on File: No Do you have thoughts of harming others: None Do you have a plan to hurt others: No Plan Recently lost weight without trying: No service: No Current occupational status: unemployed Meds Allergies Allergy/AdvReac Type Severity Reaction Status Date / Time iron dextran complex Allergy Severe ANAPHYLAXIS Verified 02/29/20 10:57 [IRON DEXTRAN COMPLEX] Sulfa (Sulfonamide Allergy Intermediate RASH/LIPS Verified 02/29/20 10:57 Antibiotics) SWELL [SULFA (SULFONAMIDE ANTIBIOTICS)] bactrim Allergy Unknown Rash Uncoded 02/29/20 10:31 iron dextran Allergy Unknown Anaphylaxis Uncoded 02/29/20 10:31 Home Medications Medication Instructions Recorded Confirmed Type cyanocobalamin (vitamin B-12) 1,000 mcg PO DAILY 02/29/20 03/15/20 History duloxetine 30 mg PO BID 02/29/20 03/15/20 History gabapentin 900 mg PO TID 02/29/20 03/15/20 History hydrochlorothiazide 25 mg PO DAILY 02/29/20 03/15/20 History levetiracetam [Keppra] 1,500 mg PO BID 02/29/20 03/15/20 History multivitamin 1 tab PO DAILY 02/29/20 03/15/20 History pantoprazole [Protonix] 20 mg PO DAILY 02/29/20 03/15/20 History nicotine 1 patch TRANSDERMAL DAILY 03/15/20 03/15/20 History nicotine (polacrilex) 2 mg BUCCAL Q2H 03/15/20 03/15/20 History Physical Exam Vital Signs: Vital Signs: Vital Signs Temp Pulse Resp BP Pulse Ox 03/15/20 16:27 97.9 F 94 17 110/79 03/15/20 16:00 98.2 F 91 16 97 03/15/20 13:38 98.2 F 96 18 108/67 99 03/15/20 11:54 98.0 F 99 20 118/73 03/15/20 10:28 92 14 106/67 03/15/20 09:33 97.9 F 96 16 112/72 99 Body Mass Index 35.4 Const: General: cooperative, healthy appearing, comfortable and no acute distress Nutritional Appearance: well nourished Orientation/consciousness: patient oriented x3 Limitations: no limitations HENMT: Head: Yes normal to inspection, Yes normocephalic and Yes atraumatic Ears: hearing grossly normal bilaterally General nose exam: Normal external nose present Face and sinus: Yes normal facial exam Mouth: Normal oral and palatal mucosa present Throat: Yes posterior oropharynx normal Eyes: Other: scleral icterus General: appearance normal, both eyes and all related structures Sclerae: scleral abnormal ( icterus) Pupils: Equal, rou nd and reactive pupils present Neck: Neck: Yes normal visual inspection Chest: Chest palpation & inspection: normal inspection of the chest Resp: Effort & Inspection: normal respiratory effort and no respiratory di stress Auscultation: clear to auscultation bilaterally Cardio: Rate: regular rate Rhythm: regular rhythm Peripheral pulses: Peripheral pulses 2+ throughout GI: Other: Abdomen is distended, tender suprapubic area Inspection: Yes normal to inspection Palpation (GI): Soft to palpation Auscultation: normal bowel sounds Back/Spine/Pelvis: Thoracic/Lumbar Spine: thoracic and lumbar spine normal to inspection Skin: Other: +jaundice General skin exam: no rashes or lesions noted and jaundice Neuro: General: patient oriented x3, no focal motor deficits and normal sensation to monofilament Cranial nerves: Yes CN's II-XII intact bilaterally, Yes Equal, round and reactive pupils present and Yes Bilaterally intact EOM present Cognition (Neuro): normal cognition Speech: No Abnormal speech present Gait exam (Neuro): Normal gait present Motor exam (neuro): 5/5 motor strength present throughout Extrem: General: Yes normal to inspection Results Labs CBC & Chem 7: 03/15/20 10:26 03/15/20 19:56 Labs: Short CBC 03/15/20 Range/Units 10: WBC 12.3 H (4.8-10.8) X10*3/uL Hgb 10.2 L (12.0-16.0) g/dl Hct 30.9 L (37-47) % Plt Count 213 (160-400) X10*3/uL BMP 03/15/20 03/15/20 03/15/20 10:26 17:00 19:56 Sodium 123 L 127 L 126 L Potassium 3.2 L 3.2 L 3.1 L Chloride 85 L 88 L 89 L Carbon Dioxide 30 H 28 30 H BUN 3 L 3 L 3 L Creatinine 0.48 L 0.42 L 0.44 L Calcium 7.9 L 8.3 L 8.0 L Liver Function 03/15/20 Range/Units 10:26 Total Bilirubin 18.0 H (0.0-1.0) mg/dL Direct Bilirubin 14.0 H (0.0-0.5) mg/dL AST 366 H (5-31) U/L ALT 50 H (0-31) U/L Alkaline Phosphatase 310 H (39-117) U/L Albumin 2.7 L (3.5-5.0) g/dL Urine 03/15/20 Range/Units 10:59 Urine Color YELLOW Urine Appearance HAZY Urine pH 7.0 (5.0-8.0) Ur Specific [place] <= 1.005 (1.005-1.025) Urine Protein NEG (NEG-TRACE) MG/DL Urine Glucose (UA) NEG (NEG) MG/DL Assessment and Plan (1) Acute hyponatremia: Status: Acute 35-year-old female with a history of alcohol abuse, seizure disorder, and alcoholic hepatitis presenting with probably hypovolemic hyponatremia from combo of lactulose and thiazide diuretics. steroid started by primary team due tp higher lft PLAN 1/ recommend hold lactulose, can use rifaximin instead, and restart laculose cautiously once Na normal and titrate to 2-3 soft bowel motions daily 2/ optimize lytes as doing, check Mag and Zinc 3/can cont with steroids for the moment, Lille score at D#7 to decide if need to cont or can stop 4/ check AM cortisol level 5/ CIWA scale as doing 6 check for urine infection or other primary sources, check c diff 7/lo salt diet
[2020-03-16 01:09] LABS: Anion Gap 16 (12-20); Blood Urea Nitrogen 3 mg/dL (9-16); Calcium 8.4 mg/dL (8.4-10.2); Carbon Dioxide 27 mmol/L (22-29); Chloride 91 mmol/L (96-108); Estimated Glomerular Filt Rate > 60; Glucose Random 97 mg/dL (60-115); Potassium 4.9 mmol/l (3.3-5.1); Sodium 129 mmol/L (135-145)
[2020-03-16] MEDS: Omeprazole 20 MG CAPSULE.DR PO (05:27)
[2020-03-16 06:40] LABS: MANUAL DIFF FLAG NO
[2020-03-16 06:57] LABS: Basophils Percent Auto 0.2 % (0-2); Hematocrit 29.1 % (37-47); Hemoglobin 9.7 g/dl (12.0-16.0); Imm Gran Abs Auto 0.08 X10*3/uL (0.00-0.03); Imm Gran Pct Auto 0.7 % (0.0-0.4); Lymphocytes Absolute Auto 1.6 X10*3/uL (1.2-4.9); Lymphocytes Percent Auto 14.7 % (20-40); Mean Corpuscular HGB Conc 33.3 g/dl (31.0-35.0); Mean Corpuscular Hemoglobin 33.7 pg (27.0-33.0); Mean Platelet Volume 11.4 fL (9.4-12.3); Monocytes Absolute Auto 0.6 X10*3/uL (0.1-1.2); Monocytes Percent Auto 5.1 % (2-11); Neutrophils Absolute Auto 8.8 X10*3/uL (2.0-8.3); Neutrophils Percent Auto 79.3 % (45-73); Platelet Count 216 X10*3/uL (160-400); Red Blood Count 2.88 X10*6/uL (4.20-5.50); Red Cell Distribution Width 14.8 % (11.0-16.0); White Blood Count 11.1 X10*3/uL (4.8-10.8)
[2020-03-16 07:28] VITALS: BP 106/51; PULSE 86; RESP 18; TEMP 36.8; O2SAT 98
[2020-03-16 07:34] LABS: Alanine Aminotransferase 49 U/L (0-31); Albumin Level 2.5 g/dL (3.5-5.0); Alkaline Phosphatase 285 U/L (39-117); Anion Gap 14 (12-20); Aspartate Amino Transferase 334 U/L (5-31); Bilirubin Direct 11.5 mg/dL (0.0-0.5); Bilirubin Total 16.1 mg/dL (0.0-1.0); Blood Urea Nitrogen 3 mg/dL (9-16); Carbon Dioxide 28 mmol/L (22-29); Chloride 94 mmol/L (96-108); Estimated Glomerular Filt Rate > 60; Glucose Random 86 mg/dL (60-115); Potassium 3.9 mmol/l (3.3-5.1); Sodium 132 mmol/L (135-145); Total Protein 4.8 g/dL (6.5-8.0)
[2020-03-16] MEDS: levETIRAcetam 500 MG TABLET 1500 MG PO ×2 (08:04→20:22)
[2020-03-16] MEDS: Cyanocobalamin (Vitamin B-12) 1,000 MCG TABLET 1000 MCG PO (08:04)
[2020-03-16] MEDS: Gabapentin 300 MG CAPSULE 900 MG PO ×3 (08:04→20:22)
[2020-03-16] MEDS: 0.9 % Sodium Chloride Flush 3 ML SYRINGE IVFLUSH ×3 (08:04→20:23)
[2020-03-16] MEDS: DULoxetine HCl 30 MG CAPSULE.DR PO ×2 (08:04→20:22)
[2020-03-16] MEDS: Multivitamin TABLET 1 TAB PO (08:04)
[2020-03-16] MEDS: Nicotine 21 MG PATCH.TD24 TRANSDERMA (08:04)
--- NOTE | 2020-03-16 09:23 | HO.PM.IMPN ---
Subjective Subjective Date of Service: 03/16/20 Interval History: abd pain improved Cardiovascular Cardiovascular: Reports no additional cardiovascular complaints Respiratory Respiratory: Reports no additional respiratory complaints Physical Exam Vital Signs: Vital Signs: Vital Signs Temp Pulse Resp BP Pulse Ox 03/16/20 07:28 98.2 F 86 18 106/51 L 98 03/15/20 23:51 97.7 F 87 17 100/70 95 03/15/20 16:27 97.9 F 94 17 110/79 03/15/20 16:00 98.2 F 91 16 97 03/15/20 13:38 98.2 F 96 18 108/67 99 03/15/20 11:54 98.0 F 99 20 118/73 03/15/20 10:28 92 14 106/67 03/15/20 09:33 97.9 F 96 16 112/72 99 Body Mass Index 35.4 General: AO X 3, no acute distress, juandiced Resp: CTA bilateral CVS: S1,S2,RRR GI: soft, non tender, non distended Neuro: motor grossly intact Psych: appropriate affect Objective Data Current Medications Generic Name Dose Route Start Last Admin Trade Name Freq PRN Reason Stop Dose Admin Acetaminophen 650 mg 03/15/20 16:26 Acetaminophen 325 Mg Tablet PO Q6H PRN Pain, Mild (Pain Scale 1-3) Cyanocobalamin 1,000 mcg 03/15/20 21:05 03/16/20 08:04 Cyanocobalamin (Vitamin B-12) 1,000 Mcg Tablet PO 1,000 mcg DAILY PABLO Administration Duloxetine HCl 30 mg 03/15/20 21:05 03/16/20 08:04 Duloxetine Hcl 30 Mg Capsule.Dr PO 30 mg BID PABLO Administration Gabapentin 900 mg 03/15/20 21:45 03/16/20 08:04 Gabapentin 300 Mg Capsule PO 900 mg TID PABLO Administration Hydrochlorothiazide 25 mg 03/16/20 09:00 03/16/20 08:11 Hydrochlorothiazide 25 Mg Tablet PO Not Given DAILY PABLO Protocol Levetiracetam 1,500 mg 03/15/20 21:37 03/16/20 08:04 Levetiracetam 500 Mg Tablet PO 1,500 mg BID PABLO Administration Multivitamins/Vitamin C 1 tab 03/16/20 09:00 03/16/20 08:04 Multivitamin Tablet PO 1 tab DAILY PABLO Administration Nicotine 21 mg 03/16/20 09:00 03/16/20 08:04 Nicotine 21 Mg Patch.Td24 TRANSDERMA 21 mg DAILY PABLO Administration Nicotine Polacrilex 2 mg 03/15/20 21:15 Nicotine Polacrilex 2 Mg Gum BUCCAL Q2H PRN Nicotine Cravings Omeprazole 20 mg 03/16/20 06:30 03/16/20 05:27 Omeprazole 20 Mg Capsule.Dr PO 20 mg DAILY@0630 PABLO Administration Oxycodone HCl 5 mg 03/15/20 16:54 03/15/20 20:47 Oxycodone Hcl Immed Release 5 Mg Tablet PO 5 mg Q4H PRN Administration pain Pharmacy Consult 1 each 03/15/20 14:36 Consult Rx Perform Med Rec MISCELLANE ONCE PRN Consult order Prednisone 40 mg 03/16/20 18:00 Prednisone 20 Mg Tablet PO DAILY [facility] Sodium Chloride 3 ml 03/15/20 16:26 03/16/20 08:04 0.9 % Sodium Chloride Flush 3 Ml Syringe IVFLUSH 3 ml QSHIFT PABLO Administration Labs CBC & Chem 7: 03/16/20 06:32 03/16/20 06:32 Assessment and Plan (1) Acute hyponatremia: Status: Acute Assessment and Plan: 35-year-old female with a history of alcohol abuse, seizure disorder, recent admission for alcoholic hepatitis who was sent to the emergency department for abnormal labs found to have hyponatremia. hyponatremia likely due to primary polydypsia and hctz and poor salt intake nephrology following monitor fluid restrict, hold hctz alcoholic hepatitis. Maddrey discriminant function 47.4. continue prednisone gi following alcohol dependence reports last drink 2 weeks ago. no evidence of alcohol withdrawal at this time follow CIWA scale tobacco dependence smoking cessation advised - nicotine replacement therapy seizure disorder seizure precautions - continue Keppra, gabapentin when med reconciliation has been completed
--- NOTE | 2020-03-16 15:26 | PM.PNNEP ---
Subjective Subjective Interval history: Seen and examined. Events noted Physical Exam Vital Signs: Vital Signs: Vital Signs Temp Pulse Resp BP Pulse Ox 03/16/20 07:28 98.2 F 86 18 106/51 L 98 03/15/20 23:51 97.7 F 87 17 100/70 95 03/15/20 16:27 97.9 F 94 17 110/79 03/15/20 16:00 98.2 F 91 16 97 Body Mass Index 35.4 Const: General: no acute distress Orientation/consciousness: patient oriented x3 HENMT: Head: Yes normocephalic Mouth: moist mucous membranes Eyes: EOM: EOMs intact bilaterally Neck: Neck: Yes no JVD Resp: Auscultation: clear to auscultation bilaterally Cardio: Jugular venous distension: no JVD GI: Palpation (GI): Soft to palpation Neuro: General: patient oriented x3 Assessment & Plan Assessment and plan (1) Acute hyponatremia: Status: Acute Assessment and Plan: Sodium getting corrected appropriately Continue current supportive care Labs AM. Shall closely follow up Time Spent With Patient Time: Total time spent is greater than 50% in coordination of care (as documented) at patient's floor/unit and/or counseling patient:
[2020-03-16 15:45] VITALS: BP 98/60; PULSE 95; RESP 18; TEMP 36.3; O2SAT 97
[2020-03-16] MEDS: oxyCODONE HCl Immed Release 5 MG TABLET PO ×2 (16:25→20:25)
--- NOTE | 2020-03-16 16:34 | MHC.CM.PN ---
PT LIVES AT HOME WITH HER S/O AND IS INDEPENDENT WITH CARE. PT USES A WALKER TO AMBULATE AND HAS NO OTHER DME. PT HAS NO IN HOME SERVICES. PT HAS A HCP COMPLETED HOWEVER REPORTS SHE DI IT WHEN SHE WAS VERY YOUNG AND NAMED HER MOTHER HER AGENT. PT DECLINED TO UPDATE IT TODAY BUT WOULD LIKE A BLANK ONE SENT HOME WITH HER. CURRENT DC PLAN IS HOME WITH NO SERVICES PT WILL SELF ARRANGE TRANSPORT
[2020-03-16] MEDS: predniSONE 20 MG TABLET 40 MG PO (17:56)
[2020-03-16] MEDS: rifAXIMin 550 MG TABLET PO (20:22)
[2020-03-16 23:39] VITALS: BP 111/72; PULSE 88; RESP 18; TEMP 36.9; O2SAT 96
[2020-03-17] MEDS: Omeprazole 20 MG CAPSULE.DR PO (05:38)
[2020-03-17 06:16] LABS: MANUAL DIFF FLAG NO
[2020-03-17 06:31] LABS: Basophils Percent Auto 0.1 % (0-2); Hemoglobin 9.8 g/dl (12.0-16.0); Imm Gran Abs Auto 0.06 X10*3/uL (0.00-0.03); Imm Gran Pct Auto 0.7 % (0.0-0.4); Lymphocytes Absolute Auto 1.4 X10*3/uL (1.2-4.9); Mean Corpuscular HGB Conc 32.7 g/dl (31.0-35.0); Mean Corpuscular Hemoglobin 33.4 pg (27.0-33.0); Mean Corpuscular Volume 102.4 fL (80-98); Mean Platelet Volume 10.8 fL (9.4-12.3); Monocytes Absolute Auto 0.3 X10*3/uL (0.1-1.2); Monocytes Percent Auto 4.1 % (2-11); Neutrophils Absolute Auto 6.5 X10*3/uL (2.0-8.3); Neutrophils Percent Auto 78.1 % (45-73); Platelet Count 235 X10*3/uL (160-400); Red Blood Count 2.93 X10*6/uL (4.20-5.50); Red Cell Distribution Width 15.1 % (11.0-16.0); White Blood Count 8.3 X10*3/uL (4.8-10.8)
[2020-03-17 06:40] LABS: INTERNATIONAL NORM RATIO 1.4 (0.9-1.1); Prothrombin Time 16.4 SEC (10.8-13.0)
[2020-03-17 06:53] LABS: Alanine Aminotransferase 50 U/L (0-31); Albumin Level 2.7 g/dL (3.5-5.0); Alkaline Phosphatase 302 U/L (39-117); Anion Gap 9 (12-20); Aspartate Amino Transferase 268 U/L (5-31); Bilirubin Direct 11.2 mg/dL (0.0-0.5); Bilirubin Total 14.2 mg/dL (0.0-1.0); Blood Urea Nitrogen 5 mg/dL (9-16); Calcium 8.2 mg/dL (8.4-10.2); Carbon Dioxide 34 mmol/L (22-29); Chloride 97 mmol/L (96-108); Creatinine Clr Calc Pharmacy 208.2; Estimated Glomerular Filt Rate > 60; Glucose Fasting 113 mg/dL (60-99); Potassium 3.7 mmol/l (3.3-5.1); Sodium 136 mmol/L (135-145); Total Protein 4.8 g/dL (6.5-8.0)
[2020-03-17 07:59] VITALS: BP 111/66; PULSE 86; RESP 20; TEMP 36.5; O2SAT 98
[2020-03-17] MEDS: rifAXIMin 550 MG TABLET PO (08:37)
[2020-03-17] MEDS: Gabapentin 300 MG CAPSULE 900 MG PO (08:37)
[2020-03-17] MEDS: levETIRAcetam 500 MG TABLET 1500 MG PO (08:37)
[2020-03-17] MEDS: Multivitamin TABLET 1 TAB PO (08:37)
[2020-03-17] MEDS: predniSONE 20 MG TABLET 40 MG PO (08:37)
[2020-03-17] MEDS: DULoxetine HCl 30 MG CAPSULE.DR PO (08:37)
[2020-03-17 08:38] VITALS: BP 111/66; PULSE 86
[2020-03-17] MEDS: Spironolactone 25 MG TABLET PO (08:38)
[2020-03-17] MEDS: Cyanocobalamin (Vitamin B-12) 1,000 MCG TABLET 1000 MCG PO (08:38)
[2020-03-17] MEDS: Nicotine 21 MG PATCH.TD24 TRANSDERMA (08:38)
[2020-03-17] MEDS: 0.9 % Sodium Chloride Flush 3 ML SYRINGE IVFLUSH (08:38)
[2020-03-17] MEDS: oxyCODONE HCl Immed Release 5 MG TABLET PO (08:40)
--- NOTE | 2020-03-17 09:53 | P.DS_ITS ---
DS: Providers Provider Date of admission: 03/15/20 14:01 Primary care physician: Queta Santiago NP Consults: 03/15/20 16:26 Consult to Nephrology Routine Consulting Provider: Fer Dey Reason for consultation: hyponatremia Consult to Physician Routine Consulting Provider: Crispin Pritchett Reason for consultation: elevated lfts DS: Diagnosis Discharge Diagnosis (1) Acute hyponatremia: Status: Acute (2) Acute alcoholic hepatitis: Status: Acute DS: Summary Hospital Course Hospital Course: from initial H&P: this is a 35-year-old female with a history of recent admission for alcoholic hepatitis who returns to the emergency department due to abnormal labs. She had repeat labs drawn as outpatient which revealed hyponatremia. For this reason she was sent to the emergency department for further evaluation. She was noted to have a sodium level of 123. She was evaluated by nephrology in the emergency department who recommended fluid restriction and closely monitoring sodium levels. Her LFTs had increased slightly. she reported mild right lower quadrant abdominal pain with no associated vomiting. She has diarrhea secondary to lactulose. PMH: Alcohol dependence with alcoholic fatty liver disease Epilepsy Raynaud's PCOS Iron deficiency new Chronic back pain Right cephalic superficial thrombophlebitis that was provoked status post 1 month of Xarelto Hospital course: Patient was admitted for alcoholic hepatitis and acute hyponatremia. For her alcoholic hepatitis she was seen by Gastroenterology recommended prednisone and monitoring labs, her LFTs are currently down trending and her abdominal pain has resolved. She will be discharged home. Her lab should be repeated in 3 days and she should follow-up with GI to determine duration of therapy of her prednisone, She will also be started on rifaximin. She has been educated on alcohol cessation. For her hyponatremia she was seen by Nephrology, this is most likely multifactorial due to hydrochlorothiazide, primary polydipsia, and poor solute intake. Hyponatremia resolved added acceptable rate. She will continue to fluid restrict and improved for solute intake. Hydrochlorothiazide has been placed on hold. Time Spent with Patient Time attestation: Total time spent providing and/or coordinating discharge services: Physical Exam Vital Signs: Vital Signs: Vital Signs Temp Pulse Resp BP Pulse Ox 03/17/20 08:38 86 111/66 03/17/20 07:59 97.7 F 86 20 111/66 98 03/16/20 23:39 98.4 F 88 18 111/72 96 03/16/20 15:45 97.4 F 95 18 98/60 97 Body Mass Index 35.4 General: AO X 3, no acute distress, juandiced Resp: CTA bilateral CVS: S1,S2,RRR GI: soft, non tender, non distended Neuro: motor grossly intact Psych: appropriate affect DS: Data Data Completed and Pending Completed studies during hospitalization [Text1]: Procedures Detoxification Services for Substance Abuse Treatment (02/29/20) Labs on day of discharge: Labs from last 24 hours 03/17/20 03/17/20 03/17/20 06:01 06:01 06:01 WBC 8.3 RBC 2.93 L Hgb 9.8 L Hct 30.0 L MCV 102.4 H MCH 33.4 H MCHC 32.7 RDW 15.1 Plt Count 235 MPV 10.8 Immature Gran % (Auto) 0.7 H Neut % (Auto) 78.1 H Lymph % (Auto) 17.0 L Moody % (Auto) 4.1 Eos % (Auto) 0.0 Baso % (Auto) 0.1 Lymph # (Auto) 1.4 Moody # (Auto) 0.3 Eos # (Auto) 0.0 Baso # (Auto) 0.0 Abs Immat Gran (auto) 0.06 H Absolute Neuts (auto) 6.5 Absolute Nucleated RBC 0.000 Nucleated RBC % (auto) 0.0 PT 16.4 H INR 1.4 H Sodium 136 Potassium 3.7 Chloride 97 Carbon Dioxide 34 H Anion Gap 9 L BUN 5 L D Creatinine 0.46 L Estim Creat Clear Calc 208.2 Estimated GFR > 60 Fasting Glucose 113 H D Calcium 8.2 L Total Bilirubin 14.2 H Direct Bilirubin 11.2 H AST 268 H ALT 50 H Alkaline Phosphatase 302 H Total Protein 4.8 L Albumin 2.7 L Discharge Plan Discharge Patient Disposition: Home, Self-Care Referrals: Crispin Pritchett MD [Physician] - Queta Santiago NP [Primary Care Provider] - Discharge Medications: New prednisone 20 mg Tablet 40 mg PO DAILY Qty: 14 RF: 0 Xifaxan 550 mg Tablet 550 mg PO BID Qty: 60 RF: 0 Continued multivitamin Tablet 1 tab PO DAILY RF: 0 cyanocobalamin (vitamin B-12) 1,000 mcg Tablet 1,000 mcg PO DAILY RF: 0 pantoprazole [Protonix] 20 mg Tablet,Delayed Release (Dr/Ec) 20 mg PO DAILY RF: 0 levetiracetam [Keppra] 100 mg/mL Solution 1,500 mg PO BID RF: 0 duloxetine 30 mg Capsule,Delayed Release(Dr/Ec) 30 mg PO BID RF: 0 gabapentin 300 mg Tablet 900 mg PO TID RF: 0 nicotine (polacrilex) 2 mg Gum 2 mg BUCCAL Q2H RF: 0 nicotine 21 mg/24 hr Patch 24 Hour 1 patch TRANSDERMAL DAILY RF: 0 spironolactone 50 mg PO DAILY RF: 0 oxycodone 5 mg PO TID PRN (Reason: Severe Pain (Scale Score 7-10)) RF: 0 Discontinued hydrochlorothiazide 25 mg Tablet 25 mg PO DAILY RF: 0 Discharge Orders: Discharge Order (Routine); Ordered 03/17/20 Ordered By: Kurtis Mason Activity on Discharge: As tolerated Other Ambulatory Orders: Comprehensive Met. Panel (Routine) Timeframe: 3 Days Facility: [facility] - Location: Laboratory Ordered By: Kurtis Mason Prothrombin Time INR (Routine) Timeframe: 3 Days Facility: [facility] - Location: Laboratory Ordered By: Kurtis Mason Visit Report Forms: Patient Portal Discharge page Care Plan Goals: recovery Health Concerns: alcohol hepatitis, hyponatremia Plan of Treatment: alcohol cessation, stop hctz, fluid restrict, labs in 3 days, follow up with gi, start rifaximin, conitnue prednisone and follow up with gi for duration of therapy
--- NOTE | 2020-03-17 10:10 | MHC.CM.PN ---
Pt to DC home today with no services. Pt to self arrange transport
== END 2020-03-17 10:45 | disposition home or self-care (01) | DRG 280 ==
LOC: HO.ED 13:22 → HO.IMC 14:46
PROVIDERS: Nurse Practitioner Family; Physician Assistant Medical; Admitting Provider Internal Medicine; Emergency Provider Emergency Medicine; PCP Nurse Practitioner Family; Visit Provider Internal Medicine
DX: K70.10 Alcoholic hepatitis without ascites (principal); K70.0 Alcoholic fatty liver; E87.1 Hypo-osmolality and hyponatremia; F10.20 Alcohol dependence, uncomplicated; F17.210 Nicotine dependence, cigarettes, uncomplicated; G40.909 Epilepsy, unspecified, not intractable, without status epilepticus; G89.29 Other chronic pain; Z98.84 Bariatric surgery status; Z71.6 Tobacco abuse counseling; Z88.2 Allergy status to sulfonamides; Z79.891 Long term (current) use of opiate analgesic; Z79.899 Other long term (current) drug therapy
CPT/HCPCS: 36415; 80048; 80076; 81003; 81025; 82140; 82436; 83735; 83930; 83935; 84133; 84300; 85025; 85610; 99232; 99285

== ENCOUNTER → 2020-03-18 10:15 | Outpatient (BNVA) | payer MEDICAID, SELFPAY | PROVIDERS: PCP Nurse Practitioner Family; Visit Provider Internal Medicine Gastroenterology | DX: K70.10 Alcoholic hepatitis without ascites (principal) | CPT/HCPCS: 99212 ==

== ENCOUNTER 2020-03-20 10:12 | Outpatient (REF) | payer MEDICAID, SELFPAY ==
[2020-03-20 11:40] LABS: MANUAL DIFF FLAG NO
[2020-03-20 11:54] LABS: Basophils Percent Auto 0.1 % (0-2); Hematocrit 33.9 % (37-47); Hemoglobin 10.6 g/dl (12.0-16.0); Imm Gran Abs Auto 0.12 X10*3/uL (0.00-0.03); Imm Gran Pct Auto 0.8 % (0.0-0.4); Lymphocytes Absolute Auto 1.8 X10*3/uL (1.2-4.9); Lymphocytes Percent Auto 11.6 % (20-40); Mean Corpuscular HGB Conc 31.3 g/dl (31.0-35.0); Mean Corpuscular Hemoglobin 32.6 pg (27.0-33.0); Mean Corpuscular Volume 104.3 fL (80-98); Mean Platelet Volume 10.8 fL (9.4-12.3); Monocytes Absolute Auto 0.9 X10*3/uL (0.1-1.2); Monocytes Percent Auto 5.5 % (2-11); Platelet Count 295 X10*3/uL (160-400); Red Blood Count 3.25 X10*6/uL (4.20-5.50); Red Cell Distribution Width 15.3 % (11.0-16.0); White Blood Count 15.8 X10*3/uL (4.8-10.8)
[2020-03-20 12:19] LABS: INTERNATIONAL NORM RATIO 1.3 (0.9-1.1)
[2020-03-20 12:25] LABS: Alanine Aminotransferase 70 U/L (0-31); Albumin Level 2.8 g/dL (3.5-5.0); Alkaline Phosphatase 302 U/L (39-117); Anion Gap 13 (12-20); Aspartate Amino Transferase 273 U/L (5-31); Blood Urea Nitrogen 11 mg/dL (9-16); Calcium 8.4 mg/dL (8.4-10.2); Carbon Dioxide 31 mmol/L (22-29); Chloride 97 mmol/L (96-108); Estimated Glomerular Filt Rate > 60; Glucose Random 94 mg/dL (60-115); Potassium 3.1 mmol/l (3.3-5.1); Sodium 138 mmol/L (135-145); Total Protein 5.2 g/dL (6.5-8.0)
[2020-03-20 12:39] LABS: Vitamin D 25-OH Total 18.6 ng/mL (>30)
[2020-03-20 13:43] LABS: Folate 8.5 ng/mL (> or = 4.0); Vitamin B12 1745 pg/mL (200-900)
[2020-03-23 03:17] LABS: Zinc 26 mcg/dL (60-130)
[2020-03-24 16:46] LABS: Vitamin A 9 mcg/dL (38-98)
[2020-03-25 12:37] LABS: Vitamin B6 4.4 ng/mL (2.1-21.7)
[2020-03-25 19:11] LABS: Vitamin C 0.2 mg/dL (0.3-2.7)
[2020-03-26 15:12] LABS: Vitamin B1 11 nmol/L (8-30)
[2020-03-26 16:21] LABS: Nicotinamide <20 ng/mL; Vit B3 - Nicotinic Acid 68 ng/mL
== END 2020-03-20 10:13 | disposition home or self-care (01) ==
LOC: HO.LAB 10:12
PROVIDERS: Internal Medicine; PCP Nurse Practitioner Family; Visit Provider Internal Medicine Gastroenterology
DX: K70.10 Alcoholic hepatitis without ascites (principal)
CPT/HCPCS: 36415; 80053; 82180; 82306; 82607; 82746; 84207; 84425; 84590; 84591; 84630; 85025; 85610

== ENCOUNTER → 2020-04-19 10:51 | Outpatient (BNVA) | payer MEDICAID, SELFPAY | PROVIDERS: PCP Nurse Practitioner Family; Referring Provider Nurse Practitioner Family; Visit Provider Internal Medicine Gastroenterology | DX: K70.10 Alcoholic hepatitis without ascites (principal); G89.29 Other chronic pain; M54.5 Low back pain; L03.316 Cellulitis of umbilicus; F10.11 Alcohol abuse, in remission | CPT/HCPCS: 99212 ==

== ENCOUNTER 2020-05-14 07:50 | Outpatient (REF) | payer MEDICAID, SELFPAY ==
--- NOTE | 2020-05-14 08:24 | US_ITS ---
EXAMINATION: US ABDOMEN COMPLETE CLINICAL INFORMATION: Alcoholic hepatitis without ascites. COMPARISON: MRCP 03/11/2020. CT abdomen and pelvis 02/29/2020. TECHNIQUE: Real-time imaging of the abdominal viscera. FINDINGS: PANCREAS: Most of the pancreas is obscured by a right gas. ABDOMINAL AORTA: The proximal, mid, and distal segments are normal in caliber. INFERIOR VENA CAVA: Visualized portions are normal. LIVER: The right lobe of liver is enlarged measuring 25 cm in length. The liver contour is irregular lobulated Parenchymal echogenicity is increased there is a focal fatty sparing at the junction of left and right hepatic lobe superior to the gallbladder. No other focal lesion seen. There is no intrahepatic biliary duct dilatation seen. GALLBLADDER: The gallbladder is physiologically distended. Multiple mobile gallstones are present. COMMON BILE DUCT: Normal in caliber measuring 0.9 cm in diameter. RIGHT KIDNEY: Normal. No hydronephrosis. No renal calculi or focal parenchymal lesions. The kidney measures 11.4 cm in maximum dimension. LEFT KIDNEY: There is a small anechoic cyst measuring 1.3 x 0.9 x 1.1 cm in the midpole. A probable cyst is suspected upper pole as well. No echogenic calculi or hydronephrosis. The kidney measures 10.7 cm in maximum dimension. SPLEEN: Mild hypervascular spleen at the hilum is noted. The spleen measures 13.8 cm in maximum dimension. FREE FLUID: Moderate to large free fluid noted. US/US abdomen complete IMPRESSION: Hepatic steatosis with area of focal fatty sparing at in between the right and left hepatic lobe, superior to the gallbladder. Findings are suspicious and suggestive of cirrhosis. There is increased vascularity in splenic hilum. Gallstones without wall thickening. Suspect 2 small cysts in the left kidney. Moderate to large diffuse ascites..
[2020-05-14 08:45] LABS: MANUAL DIFF FLAG NO
[2020-05-14 08:52] LABS: Basophils Percent Auto 0.2 % (0-2); Hematocrit 32.5 % (37-47); Hemoglobin 10.4 g/dl (12.0-16.0); Imm Gran Abs Auto 0.01 X10*3/uL (0.00-0.03); Imm Gran Pct Auto 0.2 % (0.0-0.4); Lymphocytes Absolute Auto 1.8 X10*3/uL (1.2-4.9); Mean Corpuscular Hemoglobin 25.8 pg (27.0-33.0); Mean Corpuscular Volume 80.6 fL (80-98); Mean Platelet Volume 11.2 fL (9.4-12.3); Monocytes Absolute Auto 0.5 X10*3/uL (0.1-1.2); Monocytes Percent Auto 9.2 % (2-11); Neutrophils Absolute Auto 3.6 X10*3/uL (2.0-8.3); Neutrophils Percent Auto 60.4 % (45-73); Platelet Count 211 X10*3/uL (160-400); Red Blood Count 4.03 X10*6/uL (4.20-5.50); Red Cell Distribution Width 20.8 % (11.0-16.0); White Blood Count 5.9 X10*3/uL (4.8-10.8)
[2020-05-14 08:55] LABS: INTERNATIONAL NORM RATIO 1.3 (0.9-1.1); Prothrombin Time 14.9 SEC (10.8-13.0)
[2020-05-14 09:05] LABS: Glucose Urine UA NEG (NEG); Leukocyte Esterase Urine TRACE (NEG); Nitrite Urine POS (NEG); PH 6.5 (5.0-8.0); Specific Gravity - Urine 1.025 (1.005-1.025); Urine Blood NEG (NEG); Urine Ketones 5 MG/DL (NEG); Urine Protein TRACE MG/DL (NEG-TRACE)
[2020-05-14 09:09] LABS: Appearance Urine CLOUDY; Color Urine DARK YELLOW
[2020-05-14 09:23] LABS: Alanine Aminotransferase 35 U/L (0-31); Alkaline Phosphatase 320 U/L (39-117); Anion Gap 12 (12-20); Aspartate Amino Transferase 161 U/L (5-31); Bilirubin Total 3.6 mg/dL (0.0-1.0); Blood Urea Nitrogen 5 mg/dL (9-16); Calcium 7.7 mg/dL (8.4-10.2); Carbon Dioxide 26 mmol/L (22-29); Chloride 101 mmol/L (96-108); Estimated Glomerular Filt Rate > 60; Glucose Random 76 mg/dL (60-115); Potassium 3.3 mmol/l (3.3-5.1); Sodium 136 mmol/L (135-145); Total Protein 5.6 g/dL (6.5-8.0)
[2020-05-14 09:27] LABS: Bacteria Urine 2+ /LPF; Mucus Urine 2+ /LPF; RBC Urine 0-2 /HPF (0); Squamous Epithelial Cell Urine 4+ /LPF
[2020-05-14 09:42] LABS: Ferritin 29 ng/mL (10-122)
[2020-05-14 09:58] LABS: Folate 5.6 ng/mL (> or = 4.0); Vitamin B12 616 pg/mL (200-900)
[2020-05-19 02:16] LABS: Zinc 31 mcg/dL (60-130)
[2020-05-20 14:27] LABS: Vitamin D 25-OH, D2 <4 ng/mL; Vitamin D 25-OH, D3 25 ng/mL; Vitamin D 25-OH, Total 25 ng/mL (30-100)
[2020-05-20 21:28] LABS: Vitamin A <5 mcg/dL (38-98); Vitamin C 0.1 mg/dL (0.3-2.7)
== END 2020-05-14 07:51 | disposition home or self-care (01) ==
LOC: HO.US 07:50
PROVIDERS: PCP Nurse Practitioner Family; Visit Provider Internal Medicine Gastroenterology
DX: G89.29 Other chronic pain (principal); K70.10 Alcoholic hepatitis without ascites; M54.9 Dorsalgia, unspecified
CPT/HCPCS: 36415; 76700; 80053; 81001; 81003; 82180; 82306; 82607; 82728; 82746; 84590; 84630; 85025; 85610; 87086